=== PATIENT | male | born 1985 | race Caucasian/White ===

== ENCOUNTER 2023-06-30 09:30 | Outpatient (OUT) | payer MEDICARE, SELFPAY ==
[2023-06-30 10:27] LABS: Basophils Percent Auto 0.5 % (0.2-2.0); Eosinophils Absolute Auto 0.1 10^3/uL (0.0-0.7); Eosinophils Percent Auto 2.4 % (0.9-7.0); Hematocrit 46.1 % (42.0-54.0); Hemoglobin 15.3 g/dL (14.0-18.0); Immature Granulocytes Abs Auto 0.01 10^3/uL (0.00-0.03); Immature Granulocytes Pct Auto 0.2 % (0.0-0.5); Lymphocytes Absolute Auto 1.3 10^3/uL (1.2-3.8); Lymphocytes Percent Auto 31.2 % (20.5-60.0); Mean Corpuscular HGB Conc 33.2 g/dL (29.9-35.2); Mean Corpuscular Hemoglobin 29.5 pg (25.9-34.0); Mean Platelet Volume 11.4 fL (9.5-13.5); Monocytes Absolute Auto 0.3 10^3/uL (0.3-0.8); Monocytes Percent Auto 6.7 % (1.7-12.0); Neutrophils Absolute Auto 2.5 10^3/uL (1.4-6.5); Platelet Count 150 10^3/uL (150-450); Red Blood Count 5.18 10^6/uL (4.70-6.10); Red Cell Distribution Width 13.4 % (11.0-15.0); White Blood Count 4.2 10^3/uL (4.0-11.0)
[2023-06-30 11:54] LABS: Estimated Average Glucose 97 mg/dL
[2023-06-30 13:56] LABS: Alanine Aminotransferase 19 U/L (16-63); Albumin Globulin Ratio 1.2; Albumin Level 4.3 g/dL (3.4-5.0); Alkaline Phosphatase 69 U/L (46-116); Aspartate Amino Transferase 14 U/L (15-37); BUN Creatinine Ratio 20.3; Bilirubin Total 0.9 mg/dL (0.2-1.0); Calcium 9.6 mg/dL (8.5-10.1); Carbon Dioxide 28.2 mmol/L (21.0-32.0); Chloride 102 mmol/L (98-107); Chol HDL Ratio 3.1; Cholesterol 140 mg/dL (<=200); Estimated GFR (African America >60 (>=60); Estimated GFR (Non-African Ame >60 (>=60); Globulin 3.5 g/dL; Glucose 86 mg/dL (74-106); HDL Cholesterol 45 mg/dL (40-60); Potassium 4.2 mmol/L (3.5-5.1); Sodium 142 mmol/L (136-145); Total Protein 7.8 g/dL (6.4-8.2); Triglycerides 65 mg/dL (<=150); Uric Acid 3.9 mg/dL (3.5-7.2)
== END 2023-06-30 09:31 | disposition home or self-care (01) ==
PROVIDERS: PCP Family Medicine; Visit Provider Family Medicine
DX: G80.3 Athetoid cerebral palsy (principal); G80.9 Cerebral palsy, unspecified; E78.5 Hyperlipidemia, unspecified; R73.09 Other abnormal glucose
CPT/HCPCS: 36415; 80053; 80061; 83036; 84550; 85025

== ENCOUNTER 2024-03-01 08:25 | Outpatient (OUT) | payer MEDICARE, SELFPAY ==
--- NOTE | 2024-03-01 08:28 | XR_ITS ---
The [address] [address] Patient Name: DEVORAH MARCIAL MRN: [id number] date: 1985 Sex: M Assigned Patient Location: RAD Current Patient Location: [facility] Accession/Order Number: [id number] Exam Date: 03/01/2024 08:38 Report Date: 03/01/2024 09:05 At the request of: STACY WARNER Procedure: XR DEXA axial skeleton EXAMINATION: XR DEXA axial skeleton, 03/01/2024 8:38 AM EDT HISTORY: Age Related Osteoporosis M81.0 COMPARISON: None. TECHNIQUE: Dual-energy X-ray absorptiometry (DEXA) bone density study performed for the axial skeleton. HISTORY: Age Related Osteoporosis M81.0 FINDINGS: Bone mineral density left femoral trochanter measures 0.469 g/sq cm. T score -3.3. WHO classification: Osteoporosis Bone mineral density right femoral trochanter measuring 0.467 g/sq cm. T score -3.3. WHO classification: Osteoporosis XR/XR DEXA axial skeleton IMPRESSION: Osteoporosis. High fracture risk Electronically authenticated by: ALEKSANDER REID Date: 03/01/2024 09:05
== END 2024-03-01 08:26 | disposition home or self-care (01) ==
LOC: RAD 08:25
PROVIDERS: PCP Family Medicine; Visit Provider Family Medicine
DX: M81.0 Age-related osteoporosis without current pathological fracture (principal); G80.3 Athetoid cerebral palsy
CPT/HCPCS: 36415; 77080; 82306

== ENCOUNTER 2024-08-03 09:44 | Outpatient (OUT) | payer MEDICARE, SELFPAY ==
--- OUTSIDE RECORDS SUMMARY | 2024-08-03 09:59 | XMS_ITS | CCD ---
Author Organization [facility] CliniSytn Care Team Providers Care Crisis Intervention Specialist Name Role Phone Stacy Max~[phone] UNKNOWN Unavailable Unavailable Stacy Max~[phone] UNKNOWN Unavailable Unavailable Stacy Max~[phone] UNKNOWN Unavailable Unavailable Stacy Max Primary Care Provider UnavailNiki Santiago Attending Provider Unavailab Stacy Watts MD Primary Care Provider Niki Valera MD Unavailable Niki Valera MD Unavailable [phone] Gee Acuna MD Unavailable MD Stacy Max Primary Care Provider MD Stacy Max Attending Provider Stacy Max Attending Unavailable Stacy Max Primary Care Unavailable Stacy Max Admitting Unavailable Stacy Max MD Primary Care Provider [phone] Niki Valera MD Unavailable Niki Valera MD Unavailable Gee Acuna MD Unavailable Stacy Max MD. Primary Care Provider [phone] Niki Valera MD Unavailable [phone] Niki Valera MD Unavailable [phone] Gee Acuna MD Unavailable DR STACY NELSON Attending Unavailable TIMMY ., DR KUMAR Admitting Unavailable TIMMY ., DR KUMAR Primary Care Unavailable ITMMY Romero, DR KUMAR Attending Unavailable HOY ., DR KUMAR Admitting Unavailable HOY ., DR KUMAR Primary Care Unavailable HOY ., DR KUMAR Consulting Unavailable HOY ., DR KUMAR Attending Unavailable HOY ., DR KUMAR Admitting Unavailable HOY ., DR KUMAR Primary Care Unavailable HOY ., DR KUMAR Consulting Unavailable HOY ., DR KUMAR Admitting Unavailable HOY ., DR KUMAR Primary Care Unavailable HOY ., DR KUMAR Attending Unavailable STACY MAX Primary Care Unavailable PROVIDER, UNKNOWN Admitting Unavailable GEE ACUNA Attending Unavailable INDIA NAVARRO Attending Unavailable Unavailable Unavailable Unavailable Medications Current Medications Medication Drug Class(es) Dates Sig (Normalized) Sig (Original) baclofen 10 mg oral tablet (13 sources) gamma-Aminobutyri c Acid-ergic Agonist Start: 02-22-2023 End: 02-16-2024 take 1.5 tablets by mouth three times daily baclofen (LIORESAL) 10 MG tablet Indications: CP (cerebral palsy), dyskinetic (HCC) Take 1.5 Tablets by mouth 3 times daily. 135 Tablet 11 02/16/2024 Active Start: 02-25-2022 take 1.5 tablets by mouth three times daily baclofen (LIORESAL) 10 MG tablet Indications: CP (cerebral palsy), dyskinetic (HCC) Take 1.5 Tablets by mouth 3 times daily. 135 Tablet 11 02/25/2022 Active Start: 02-02-2022 End: 02-25-2022 take 1 tablet by mouth three times daily as needed baclofen (LIORESAL) 20 MG tablet Take 1 Tablet by mouth 3 times daily as needed. For worsening spasticity/stiffness 90 Tablet 11 02/02/2022 02/25/2022 Discontinued (Changing therapy) Start: 02-04-2021 End: 02-02-2022 take 1.5 tablets by mouth three times daily baclofen (LIORESAL) 10 MG tablet Indications: CP (cerebral palsy), dyskinetic (HCC) TAKE 1.5 TABLETS BY MOUTH 3 TIMES DAILY. 135 Tablet 11 02/04/2021 02/02/2022 Discontinued Start: 09-20-2019 take 30 mg by mouth three times daily Baclofen Active 30 MG Oral Three times daily September 20, 2019 10:54am Start: 06-08-2017 End: 09-20-2019 take 20 mg by mouth every eight hours Baclofen Discontinued 20 MG PO Q8H June 08, 2017 12:00am September 20, 2019 11:53am ferrous sulfate 134 mg oral tablet (2 sources) Start: 09-20-2019 take 27 mg by mouth once daily Ferrous Sulfate Active 27 MG Oral Daily September 20, 2019 10:55am Multivitamin (Multiple Vitamins) Tablet (1 source) Start: 09-20-2019 take 1 tablet by mouth once daily Multivitamin (Multiple Vitamins) Tablet Active 1 TAB PO Daily September 20, 2019 1:00am Multivitamin preparation (1 source) Start: 09-20-2019 take 1 tablet by mouth once daily Multivitamin Active 1 TAB Oral Daily September 20, 2019 10:55am Problems Active Problems Problem Classification Problem Date Documented Date Episodic/Chronic Administrative/social admission (2 sources) Reduced mobility; Translations: [Other abnormalities of gait and mobility] 07-27-2017 Episodic Chronic ulcer of skin (5 sources) Pressure ulcer stage 3; Translations: [Pressure ulcer] 07-27-2017 Chronic Developmental disorders (8 sources) Developmental coordination disorder; Translations: [Specific developmental disorder of motor function] Onset: 07-16-2006 07-16-2006 Chronic Disorders of lipid metabolism (1 source) Hyperlipidemia, unspecified; Translations: [HYPERLIPIDEMIA UNSPECIFIED] Onset: 03-25-2022 Chronic Other acquired deformities (8 sources) Scoliosis deformity of spine; Translations: [Other forms of scoliosis, site unspecified] Onset: 05-13-2004 05-13-2004 Chronic Other hereditary and degenerative nervous system conditions (4 sources) Dyskinetic cerebral palsy; 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 Other hereditary and degenerative nervous system conditions (8 sources) Hereditary spastic paraplegia; 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] 05-13-2004 Chronic Other nutritional; endocrine; and metabolic disorders (2 sources) Decreased body mass index; Translations: [Body mass index (BMI) 19.9 or less, adult] Episodic Paralysis (16 sources) Cerebral palsy; Translations: [Cerebral palsy, unspecified] Onset: 03-23-2022 11-20-2021 Chronic Past or Other Problems Problem Classification Problem Date Documented Da te Episodic/Chronic Appendicitis and other appendiceal conditions (8 sources) Perforation of cecum; Translations: [Acute appendicitis with perforation and localized peritonitis, without abscess] Onset: 01-14-2016 01-14-2016 Episodic Diabetes mellitus without complication (1 source) Other abnormal glucose; Translations: [OTHER ABNORMAL GLUCOSE] Onset: 03-25-2022 Episodic Fluid and electrolyte disorders (4 sources) Hyperkalemia; Translations: [HYPERKALEMIA] Onset: 03-26-2022 Episodic Other connective tissue disease (8 sources) Muscle atrophy; Translations: [Muscle wasting and atrophy, not elsewhere classified, unspecified site] Onset: 07-16-2006 07-16-2006 Episodic Other nervous system disorders (8 sources) Incoordination; Translations: [Unspecified lack of coordination] Onset: 07-16-2006 07-16-2006 Episodic Rehabilitation care; fitting of prostheses; and adjustment of devices (16 sources) Patient encounter status; Translations: [Encounter for occupational therapy] Onset: 07-13-2006 07-13-2006 Episodic Septicemia (except in labor) (8 sources) Septic shock; Translations: [Sepsis, unspecified organism] Onset: 01-14-2016 Resolved: 06-26-2020 06-26-2020 Episodic Results Test Name Value Interpretation Reference Range Facility Progress Noteson 02-23-2024 Fire Prevention Specialist Authentication Interface Message Text Dear Dr.Dr. 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 Any further increase of baclofen is causing decreased level of alertness and social interaction . We will keep baclofen unchanged to Baclofen to be given daily as instructed .while on baclofen monitor for any excessive daytime drowsiness Baclofen overdose i presents as ;ethargy , shallow breatahing leading to breathing arrest and . do not discontinue abruptly it may lead to life threatening withdrawal syndrome consisting of itching , irritability, palpitations, sweating, fever, high blood pressure rigidity with difficulty breathing . please make sure you have baclofen always available by using my chart asking for refill and /or calling our office I suggested to the parents to read about deep brain stimulation in the management of movement disorders in Cerebral palsy . Both Devorah and his parents verbalized understandingand appreciation of care RTC in 12 months or earlier if interested in transitioning to our adult neurologis with expertise in moevments disorder. HPI /Interval history Per Devorah and his mom and dad , Devorah has been doing well, his spasticity is tolrated on the current daily dose of baclofen 10 mg/tablet : 15 mg by mouth 3 times daily. 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 Hsleeps well, both parents denied any discomfort or difficulty sleeping . The baclofen is not causing any excessive daytime tiredness and /or drowsiness . He has no issues with his wheelchair SOCIAL hx Reviewed in EPIC and updated, Allergies: has No Known Allergies. ROS: As per HPI , All systems were reviewed and were negative unless noted : Constitutional: negative for malaise, fatigue or fevers Eyes: KNOWN WITH ESSENTIAL ANISOCORIA ENT: negative for altered hearing, ear ache, epistaxis, sore throat or oral lesions Respiratory: negative for tachypnea, wheezing, stridor, or chronic cough Cardiac: negative for SOB, syncope, palpitations, or chest pain GI: negative for vomiting, diarrhea, constipation (stools daily since switching diet to fructose free), abdominal pain : negative for dysuria, gross hematuria, urinary frequency, urgency, edema. Skin: negative for rash, pruritis, cellulitis Musculoskeletal: negative for bone pain, joint swelling, muscle cramps Psychological: negative for depression, abnormalities in affect or attention Hematologic/lymphatic : negative for bruising, bleeding, pallor or lymphadenopathy Allergic/Immunologic: see allergy history in EMR; negative history for recurrent or unusual infections Neurologic:: essential anisochoria left pupil 1mm larger than right side , The remainder of the pertinent review of systems is negative. . PHYSICAL EXAMINATION: BP 91/64 Pulse 94 Temp 98.8 ???F (37.1 ???C) (Temporal) Resp 18 Wt 78 lb (35.4 kg) Comment: home weight BMI 15.23 kg/m??? 78 lb (35.4 kg) slender, General appearnace : in no distress , happy, social smiling, animated facial expression congruent with the topic of conversation Dystonic downward movement of Devorah's jaew with excitement which worsens his drooling, well aware , attentive to his surrounding, reacts to my conversation with him and his parents , Normocephalic Clear oropharyngeal airways Good Lungs good air entry , CV: regular rhythm , Abdomen: Non-tender, no palpable masses, Neurological evaluation CN: Visual field not restricted . EOM: full. VA grossly normal. Essential anisocoria 1 mm larger pupil on the left side Symmetric face and facial sensation. Hearing: grossly normal , Midline tongue . Bilateral symmetric elevation of the soft palate Sensory to light touch and cold intact in the upper and lower extremities Motor : Sitting in his wheelchair , Weak purposful movements of the hands due to dystonic posture of the upper extremities in shoulder external rotation, elbow posturing in semi flexion wrist extension Hips and knees tonic flexion . The tone to passive range of motion of the upper and lower extremities is on the dg scale 3-4 due to agonist antagonist significant increase in upper extremities shoulders external rotators , elbows flexors and extensors Wrist extensors , DTR: 2 + throughout . Cerebellar: no tremors or dysmetria of the upper extremities with pusposful movements GAIT NA LAB RESULTS and EPIC notes were reviewed : MANUELA Education on 10/14/2023 Component Date Value Ref Range Status MANUELA EDU 10/14/2023 ADVANCE DIRECTIVES Final MANUELA URL 10/14/2023 [email or web address] Final MANUELA ACC 10/14/2023 [id number] Final MANUELA ISSUE DATE 10/14/2023 Oct 14, 2023 Final MANUELA EXPIRATION DATE 10/14 (more content not included)... Normal [facility] Telephone Encounteron 2023 Fire Prevention Specialist Authentication Interface Message Text 03/08/24 Called patient again in hopes of scheduling apt with Dr. oHlder unable to reach again lv again for a return call to schedule the apt. 02/18/24 Called patient in hopes of scheduling apt with Dr. Holder, unable to reach [facility] for a return call to schedule the apt. Normal [facility] Patient Instructionson 02-15 Fire Prevention Specialist Authentication Interface Message Text Please make an appointment with Dr. Suarez from physical medicine and rehabilitation Continue baclofen 15 mg 3 times daily Baclofen to be given daily as instructed .while on baclofen monitor for any excessive daytime drowsiness Baclofen overdose i presents as ;ethargy , shallow breatahing leading to breathing arrest and . DO NOT DISCONTINUE ABRUPTLY IT MAY LEAD TO LIFE THREATENING WITHDRAWAL SYNDROME consisting of itching , irritability, palpitations, sweating, fever, high blood pressure rigidity with difficulty breathing . PLEASE MAKE SURE YOU HAVE BACLOFEN ALWAYS AVAILABLE BY USING MY CHART ASKING FOR REFILL AND /OR CALLING OUR OFFICE If you have any question or concern please call our office :After hours call [phone] then enter [phone] and ask to talk to the child neurologist retail loss prevention investigator . Gee Acuna MD. Head, Division Child Neurology [address] [place] [address] [address] Normal [facility] Progress Noteson 02-16-2024 Fire Prevention Specialist Authentication Interface Message Text Identification was verified by patient verbalizing his name and date of . Normal [facility] PROF CHEM 8 (BAS METB)on Anion gap [Moles/Vol] 13.4 mmol/L Normal [facility] Comment on above: Performed By: #### B MP #### [facility] [address] [place] [address] Dr. Jayesh Sesay Calcium [Mass/Vol] 9.7 mg/dL Normal 8.5-10.1 [facility] Comment on above: Performed By: #### B MP #### [facility] [address] [place] [address] Dr. Jayesh Sesay Chloride [Moles/Vol] 104 mmol/L Normal 98-107 [facility] Comment on above: Performed By: #### B MP #### [facility] [address] [place] [address] [address] Jayesh Sesay CO2 [Moles/Vol] 28.6 mmol/L Normal 21.0-32.0 [facility] Comment on above: Performed By: #### B MP #### [facility] [address] [place] [address] Dr. Jayesh Sesay Creatinine [Mass/Vol] 0.73 mg/dL Normal 0.70-1.30 [facility] Comment on above: Performed By: #### B MP #### [facility] [address] [place] [address] Dr. Jayesh Sesay EGFR-AF ZAMBIAN >60 Normal >=60 [facility] Comment on above: Performed By: #### B MP #### [facility] [address] [place] [address] [address] Jayesh eSsay EGFR-NON AF ZAMBIAN >60 Normal >=60 [facility] Comment on above: Performed By: #### B MP #### [facility] [address] [place] [address] [address] Jayesh Sesay Glucose [Mass/Vol] 90 mg/dL Normal 74-106 [facility] Comment on above: Performed By: #### B MP #### [facility] [address] [place] [address] [address] Jayesh Sesay Potassium [Moles/Vol] 5.0 mmol/L Normal 3.5-5.1 [facility] Comment on above: Performed By: #### B MP #### [facility] [address] [place] [address] Dr. Jayesh Sesay Sodium [Moles/Vol] 141 mmol/L Normal 136-145 [facility] Comment on above: Performed By: #### B MP #### [facility] [address] [place] [address] [address] Jayesh Sesay Urea nitrogen [Mass/Vol] 18.0 mg/dL Normal 7.0-18.0 [facility] Comment on above: Performed By: #### B MP #### [facility] [address] [place] [address] [address] Jayesh Sesay Urea nitrogen/Creatinine [Mass ratio] 24.7 mg/mg Normal [facility] Comment on above: Performed By: #### B MP #### [facility] [address] [place] [address] [address] Jayesh Sesay INSULINon 03-24-2022 Insulin 4.6 uIU/mL Normal 2.6-24.9 [facility] Comment on above: Performed By: #### I NSULIN #### [facility] [address] [place] [address] [address] Jayesh Sesay CBC AUTO DIFFon 03-23-2022 BASO # 0.0 103/ul Normal 0.0-0.1 [facility] Comment on above: Performed By: #### C BC #### [facility] [address] [place] [address] Dr. Jayesh Sesay Basophils/100 WBC (Bld) 0.5 % Normal 0.2-2.0 [facility] Comment on above: Performed By: #### C BC #### [facility] [address] [place] [address] Dr. Jayesh Sesay EO # 0.2 103/ul Normal 0.0-0.7 [facility] Comment on above: Performed By: #### C BC #### [facility] [address] [place] [address] Dr. Jayesh Sesay Eosinophils/100 WBC (Bld) 3.1 % Normal 0.9-7.0 [facility] Comment on above: Performed By: #### C BC #### [facility] [address] [place] [address] Dr. Jayesh Sesay Erythrocyte distribution width (RBC) [Ratio] 13.2 % Normal 11.0-15.0 [facility] Comment on above: Performed By: #### C BC #### [facility] [address] [place] [address] Dr. Jayesh Sesay Hematocrit (Bld) [Volume fraction] 49.6 % Normal 42.0-54.0 [facility] Comment on above: Performed By: #### C BC #### [facility] [address] [place] [address] Dr. Jayesh Sesay Hemoglobin (Bld) [Mass/Vol] 15.7 g/dL Normal 14.0-18.0 [facility] Comment on above: Performed By: #### C BC #### [facility] [address] [place] [address] Dr. Jayesh Sesay IG # 0.01 10e3/ul Normal 0.00-0.03 [facility] Comment on above: Performed By: #### C BC #### [facility] [address] [place] [address] Dr. Jayesh Sesay IG % 0.2 % Normal 0.0-0.5 [facility] Comment on above: Performed By: #### C BC #### [facility] [address] [place] [address] Dr. Jayesh Sesay LYMPH # 1.7 103/ul Normal 1.2-3.8 [facility] Comment on above: Performed By: #### C BC #### [facility] [address] [place] [address] Dr. Jayesh Sesay Lymphocytes/100 WBC (Bld) 27.6 % Normal 20.5-60.0 [facility] Comment on above: Performed By: #### C BC #### [facility] [address] [place] [address] Dr. Jayesh Sesay MANUAL DIFF REQ NO Normal [facility] Comment on above: Performed By: #### C BC #### [facility] [address] [place] [address] Dr. Jayesh Sesay MCH (RBC) [Entitic mass] 28.5 pg Normal 25.9-34.0 [facility] Comment on above: Performed By: #### C BC #### [facility] [address] [place] [address] Dr. Jayesh Sesay MCHC (RBC) [Mass/Vol] 31.7 g/dL Normal 29.9-35.2 [facility] Comment on above: Performed By: #### C BC #### [facility] [address] [place] [address] Dr. Jayesh Sesay MCV (RBC) [Entitic vol] 90.2 fL Normal 80.0-94.0 [facility] Comment on above: Performed By: #### C BC #### [facility] [address] [place] [address] Dr. Jayesh Sesay MONO # 0.4 103/ul Normal 0.3-0.8 [facility] Comment on above: Performed By: #### C BC #### [facility] [address] [place] [address] Dr. Jayesh Sesay Monocytes/100 WBC (Bld) 6.8 % Normal 1.7-12.0 [facility] Comment on above: Performed By: #### C BC #### [facility] [address] [place] [address] Dr. Jayesh Sesay NEUT # 3.8 103/ul Normal 1.4-6.5 [facility] Comment on above: Performed By: #### C BC #### [facility] [address] [place] [address] Dr. Jayesh Sesay Neutrophils/100 WBC (Bld) 61.8 % Normal 43.0-75.0 [facility] Comment on above: Performed By: #### C BC #### [facility] [address] [place] [address] Dr. Jayesh Sesay Platelet mean volume (Bld) [Entitic vol] 10.9 fL Normal 9.5-13.5 [facility] Comment on above: Performed By: #### C BC #### [facility] [address] [place] [address] Dr. Jayesh Sesay PLT 160 103/ul Normal 150-450 [facility] Comment on above: Performed By: #### C BC #### [facility] [address] [place] [address] Dr. Jayesh Sesay RBC 5.50 106/ul Normal 4.70-6.10 [facility] Comment on above: Performed By: #### C BC #### [facility] [address] [place] [address] Dr. Jayesh Sesay WBC 6.2 103/ul Normal 4.0-11.0 [facility] Comment on above: Performed By: #### C BC #### [facility] [address] [place] [address] Dr. Jayesh Sesay FREE THYROXINE INDEX T7on FTI 4.13 Normal 1.30-4.50 [facility] Comment on above: Performed By: #### L IPID, CMP, TSH, T7 #### [facility] [address] [place] [address] Dr. Jayesh Sesay T3U 35.0 % Normal 33.0-40.0 [facility] Comment on above: Performed By: #### L IPID, CMP, TSH, T7 #### [facility] [address] [place] [address] [address] Jayesh Sesay T4 [Mass/Vol] 11.80 ug/dL Normal 4.50-12.10 [facility] Comment on above: Performed By: #### L IPID, CMP, TSH, T7 #### [facility] [address] [place] [address] [address] Jayesh Sesay GLYCOHEMOGLOBIN A1Con 2021 ADA RECOMMENDATION SEE BELOW Normal [facility] Comment on above: Result Comment: ADA RECOMMENDED LIMIT 4.0 - 6.0 ADA THERAPEUTIC TARGET < 7.0 ACTION SUGGESTED > 7.0 Performed By: #### A 1C #### [facility] [address] [place] [address] Dr. Jayesh Sesay Glucose [Mass/Vol] 100 mg/dL Normal [facility] Comment on above: Performed By: #### A 1C #### [facility] [address] [place] [address] Dr. Jayesh Sesay HbA1c (Bld) [Mass fraction] 5.1 % Normal 4.5-6.2 [facility] Comment on above: Performed By: #### A 1C #### [facility] [address] [place] [address] Dr. Jayesh Sesay LIPID PROFILEon 03-23-2022 CHOL-HDL RATIO NORM SEE BELOW Normal [facility] Comment on above: Result Comment: 3.3 - 4.4 LOW RISK 4.4 - 7.1 AVERAGE RISK 7.1 - 11.0 MODERATE RISK >11.0 HIGH RISK Performed By: #### L IPID, CMP, TSH, T7 #### [facility] [address] [place] [address] [address] Jayesh Sesay Cholesterol [Mass/Vol] 153 mg/dL Normal <=200 [facility] Comment on above: Performed By: #### L IPID, CMP, TSH, T7 #### [facility] [address] [place] [address] Dr. Jayesh Sesay Cholesterol in HDL [Mass/Vol] 49 mg/dL Normal 40-60 [facility] Comment on above: Performed By: #### L IPID, CMP, TSH, T7 #### [facility] [address] [place] [address] [address] Jayesh Sesay Cholesterol in LDL [Mass/Vol] 90.6 mg/dL Normal [facility] Comment on above: Performed By: #### L IPID, CMP, TSH, T7 #### [facility] [address] [place] [address] [address] Jayesh Sesay Cholesterol.total/Ch olesterol in HDL [Mass ratio] 3.1 {ratio} Normal [facility] Comment on above: Performed By: #### L IPID, CMP, TSH, T7 #### [facility] [address] [place] [address] [address] Jayesh Sesay HDL NORMAL > or = 60 mg/dl - LO W CARDIOVASCULAR RISK <40 mg/dl - HIGH CARDIOVASCULAR RISK Normal [facility] Comment on above: Performed By: #### L IPID, CMP, TSH, T7 #### [facility] [address] [place] [address] [address] Jayesh Sesay LDL CALC NORMAL SEE BELOW Normal [facility] Comment on above: Result Comment: <100 mg/dl OPTIMAL 100 - 129 mg/dl NEAR OR ABOVE OPTIMAL 130 - 159 mg/dl BORDERLINE HIGH 160 - 189 mg/dl HIGH >190 mg/dl VERY HIGH Performed By: #### L IPID, CMP, TSH, T7 #### [facility] [address] [place] [address] [address] Jayesh Sesay Triglyceride [Mass/Vol] 67 mg/dL Normal <=150 [facility] Comment on above: Performed By: #### L IPID, CMP, TSH, T7 #### [facility] [address] [place] [address] [address] Jayesh Sesay VLDL CALC 13.4 mg/dL Normal [facility] Comment on above: Performed By: #### L IPID, CMP, TSH, T7 #### [facility] [address] [address] [address] Jayesh Sesay PROF 14(COMP METB)on 022 Albumin [Mass/Vol] 5.0 g/dL Normal 3.4-5.0 [facility] Comment on above: Performed By: #### L IPID, CMP, TSH, T7 #### [facility] [address] [place] [address] Dr. Jayesh Sesay Albumin/Globulin [Mass ratio] 1.4 {ratio} Normal [facility] Comment on above: Performed By: #### L IPID, CMP, TSH, T7 #### [facility] [address] [place] [address] Dr. Jayesh Sesay ALP [Catalytic activity/Vol] 70 U/L Normal 46-116 [facility] Comment on above: Performed By: #### L IPID, CMP, TSH, T7 #### [facility] [address] [place] [address] Dr. Jayesh Sesay ALT [Catalytic activity/Vol] 24 U/L Normal 16-63 [facility] Comment on above: Performed By: #### L IPID, CMP, TSH, T7 #### [facility] [address] [place] [address] Dr. Jayesh Sesay Anion gap [Moles/Vol] 22.7 mmol/L Normal [facility] Comment on above: Performed By: #### L IPID, CMP, TSH, T7 #### [facility] [address] [place] [address] Dr. Jayesh Sesay AST [Catalytic activity/Vol] 18 U/L Normal 15-37 [facility] Comment on above: Performed By: #### L IPID, CMP, TSH, T7 #### [facility] [address] [place] [address] Dr. Jayesh Sesay Bilirubin [Mass/Vol] 0.9 mg/dL Normal 0.2-1.0 [facility] Comment on above: Performed By: #### L IPID, CMP, TSH, T7 #### [facility] [address] [place] [address] Dr. Jayesh Sesay Calcium [Mass/Vol] 10.7 mg/dL Critically high 8.5-10.1 [facility] Comment on above: Performed By: #### L IPID, CMP, TSH, T7 #### [facility] [address] [address] [address] Jayesh Sesay Chloride [Moles/Vol] 108 mmol/L Critically high 98-107 [facility] Comment on above: Performed By: #### L IPID, CMP, TSH, T7 #### [facility] [address] [address] [address] Jayesh Sesay CO2 [Moles/Vol] 23.8 mmol/L Normal 21.0-32.0 [facility] Comment on above: Performed By: #### L IPID, CMP, TSH, T7 #### [facility] [address] [address] [address] Jayesh Sesay Creatinine [Mass/Vol] 0.81 mg/dL Normal 0.70-1.30 [facility] Comment on above: Performed By: #### L IPID, CMP, TSH, T7 #### [facility] [address] [address] [address] Jayesh Sesay EGFR-AF ZAMBIAN >60 Normal >=60 [facility] Comment on above: Performed By: #### L IPID, CMP, TSH, T7 #### [facility] [address] [address] [address] Jayesh Sesay EGFR-NON AF ZAMBIAN >60 Normal >=60 [facility] Comment on above: Performed By: #### L IPID, CMP, TSH, T7 #### [facility] [address] [address] [address] Jayesh Sesay Globulin (S) [Mass/Vol] 3.7 g/dL Normal [facility] Comment on above: Performed By: #### L IPID, CMP, TSH, T7 #### [facility] [address] [address] [address] Jayesh Sesay Glucose [Mass/Vol] 105 mg/dL Normal 74-106 [facility] Comment on above: Performed By: #### L IPID, CMP, TSH, T7 #### [facility] [address] [address] [address] Jayesh Sesay Potassium [Moles/Vol] 5.5 mmol/L Critically high 3.5-5.1 [facility] Comment on above: Performed By: #### L IPID, CMP, TSH, T7 #### [facility] [address] [place] [address] Dr. Jayesh Sesay Protein [Mass/Vol] 8.7 g/dL Critically high 6.4-8.2 [facility] Comment on above: Performed By: #### L IPID, CMP, TSH, T7 #### [facility] [address] [place] [address] Dr. Jayesh Sesay Sodium [Moles/Vol] 149 mmol/L Critically high 136-145 [facility] Comment on above: Performed By: #### L IPID, CMP, TSH, T7 #### [facility] [address] [place] [address] Dr. Jayesh Sesay Urea nitrogen [Mass/Vol] 16.0 mg/dL Normal 7.0-18.0 [facility] Comment on above: Performed By: #### L IPID, CMP, TSH, T7 #### [facility] [address] [place] [address] Dr. Jayesh Sesay Urea nitrogen/Creatinine [Mass ratio] 19.8 mg/mg Normal [facility] Comment on above: Performed By: #### L IPID, CMP, TSH, T7 #### [facility] [address] [place] [address] Dr. Jayesh Sesay TSHon 03-23-2022 TSH 1.464 uIU/mL Normal 0.358-3.740 [facility] Comment on above: Performed By: #### L IPID, CMP, TSH, T7 #### [facility] [address] [place] [address] Dr. Jayesh Sesay Coding Summary.on 08-06-2017 Coding Summary. CODING DATE: 08/06/2017 FINAL [facility] STATUS: PAYOR: Medicare ADMIT DX: REASON FOR VISIT DX: F80.1 Expressive language disorder FINAL DX: PRINCIPAL: F80.1 Expressive language disorder SECONDARY: PROCEDURES DOCTOR NAME DATE NOTE: The code number assigned matches the documented diagnosis and / or procedure in the patient's chart. However, the narrative phrase printed from the coding software may appear abbreviated, or result in slightly different terminology. Coded By: Juany Hicks Date Saved: 08/06/2017 04:29 pm [facility] Vital Signs Date Time Vital Sign Value Performing Clinician Facility 02-16-2024 12:59-0400 Body mass index (BMI) [Ratio] 15.23 kg/m2 Gee Acuna MD Work Phone: [facility] 02-16-2024 12:59-0400 Body temperature 98.8 [degF] Gee Acuna MD Work Phone: [facility] 02-16-2024 12:59-0400 Body weight 35.38 kg [facility] Comment on above: home weight 02-16-2024 12:59-0400 Diastolic blood pressure 64 mm[Hg] Gee Acuna MD Work Phone: [facility] 02-16-2024 12:59-0400 Heart rate 94 /min Gee Acuna MD Work Phone: [facility] 02-16-2024 12:59-0400 Respiratory rate 18 /min Gee Acuna MD Work Phone: [facility] 02-16-2024 12:59-0400 Systolic blood pressure 91 mm[Hg] Gee Acuna MD Work Phone: [facility] 02-02-2022 14:29-0400 Body mass index (BMI) [Ratio] 15.23 kg/m2 [facility] 02-02-2022 14:29-0400 Body temperature 97.9 [degF] [facility] 02-02-2022 14:29-0400 Body weight 35.38 kg Gee Acuna MD Work Phone: [facility] 02-02-2022 14:29-0400 Diastolic blood pressure 71 mm[Hg] Gee Acuna MD Work Phone: [facility] 02-02-2022 14:29-0400 Heart rate 106 /min Gee Acuna MD Work Phone: [facility] 02-02-2022 14:29-0400 Respiratory rate 16 /min Gee Acuna MD Work Phone: [facility] 02-02-2022 14:29-0400 Systolic blood pressure 110 mm[Hg] Gee Acuna MD Work Phone: [facility] 09-20-2019 11:18-0500 BMI (Body Mass Index) 14.7 kg/m2 [facility] 09-20-2019 11:18-0500 Body weight 35.38 kg [facility] 09-20-2019 11:18-0500 Height 154.94 cm [facility] 09-20-2019 10:56-0500 Body Temperature 97.4 [degF] [facility] 09-20-2019 10:56-0500 BP Diastolic 70 mm[Hg] [facility] 09-20-2019 10:56-0500 BP Systolic 112 mm[Hg] [facility] 09-20-2019 10:56-0500 Pulse (Heart Rate) 72 /min [facility] 09-20-2019 10:56-0500 Respiratory Rate 18 /min [facility] Encounters Encounter Date Encounter Type Care Provider Facility Start: 2024 End: 2024 ambulatory INDIA NAVARRO Not Available Start: 02-18-2024 End: 02-18-2024 Telephone encounter Michael Holder MD Work Phone: [facility] Start: 02-16-2024 End: 02-23-2024 Office outpatient visit 25 minutes Gee Acuna MD Work Phone: [facility] Comment on above: CP (cerebral palsy), dyskinetic (HCC) (Primary Dx); Body mass index (BMI) 19.9 or less, adult Start: 02-16-2024 End: 02-23-2024 ambulatory STACY MAX Facility:[facility] Start: 12-23-[address] STACY MAX . Facili ty:[facility] Start: 11-25-2022 Letter encounter Stacy Cruz Work Phone: [facility] Start: 11-03-2022 Refill Gee Cruz Work Phone: [facility] Comment on above: Refill; Prescription Clarification Start: 05-21-2022 End: 05-21-2022 ambulatory Stacy Max Facility:[facility] Start: 05-21-2022 End: 05-21-2022 Discharged Recurring MD Stacy Max Work Phone: [facility] [address] Start: 03-26-2022 End: 03-27-[address] STACY MAX . Facility: Start: 03-23-2022 End: 03-24-[address] STACY MAX . Facility: Start: 02-25-2022 ambulatory Gee Cruz Work Phone: [facility] Comment on above: Baclofen prescriptio n change Start: 02-25-2022 E-mail encounter fro m caregiver Gee Acuna MD Work Phone: [facility] Start: 02-25-2022 Telephone encounter Iris Arroyo [facility] Start: 02-02-2022 End: 02-03-2022 Office outpatient visit 25 minutes Gee Acuna MD Work Phone: [facility] Comment on above: CP (cerebral palsy), dyskinetic (HCC) (Primary Dx); Body mass index (BMI) 19.9 or less, adult Start: 01-01-[address] STACY MAX . Facili ty:[facility] Start: 09-20-2019 End: 11-06-2019 Discharged Recurring Stacy Max [facility] [place] Start: 08-04-2017 End: 02-10-2018 Ambulatory Stacy~[id number] MARISOL Max Facility:[facility] Start: 06-16-2017 End: 06-17-2017 Discharged Recurring Stacy Max [facility] [place] Procedures Date Procedure Procedure Detail Performing Clinician Start: 06-09-2016 H/O: ileostomy H/O ileostomy Gee kumar MD Work Phone: Plan of Treatment Date Care Activity Detail Author Start: 2037 Shingles (RZV) Vacci ne (1 of 2) Shingles (RZV) Vaccine (1 of 2) [facility] Start: 03-23-2027 Lipid panel [facility] Start: 01-20-2024 Lipid panel [facility] Start: 06-04-2023 COVID-19 Vaccine ( season) COVID-19 Vaccine ( season) [facility] Start: 07-04-2022 Influenza vaccination Influenza Vacc ine (#1) [facility] Start: 2022 Lipid panel Cholesterol [facility] Start: 10-06-2021 COVID-19 Vaccine (4 - Booster for Moderna series) COVID-19 Vaccine (4 - Booster for Moderna series) [facility] Start: 08-04-2017 Annual wellness visit [facility] ([id number]) [facility] Start: 2014 HPV Vaccine (optiona l start 27-45 years) HPV Vaccine (optional start 27-45 years) [facility] Start: 2006 Hepatitis A (HAV) Va ccine (optional start 19+ years) Hepatitis A (HAV) Vaccine (optional start 19+ years) [facility] Start: 2006 Hepatitis B vaccination Hepati tis B (HBV) Vaccine (1 of 3 - 19+ 3-dose series) [facility] Start: 2005 Hepatitis C screening Hepatitis C An tibody [facility] Start: 2005 Tetanus + diphtheria + acellular pertussis vaccine (product) Tdap Booster [facility] Start: 2002 [facility] Start: 1987 Hepatitis B vaccination Hepati tis B (HBV) Vaccine (1 of 3 - 3-dose series) [facility] Immunizations Immunization Date Immunization Notes Care Provider Thom conner 08-11-2021 Moderna Monovalent ( 12+ yrs) COVID-19 vaccine, mRNA, spike protein, LNP, PF, 100 mcg/0.5 mL (NSK=083) Michael Holder MD Work Phone: [facility] 07-10-2021 influenza, injectabl e, quadrivalent, contains preservative Gee Acuna MD Work Phone: [facility] 07-10-2021 influenza virus vacc ine, unspecified formulation Gee Acuna MD Work Phone: [facility] 11-28-2020 Moderna SARS-COV-2 (COVID-19) vaccine, mRNA, spike protein, LNP, preservative free, 100 mcg/0.5 mL (primary) or 50 mcg/0.25 mL (booster) (YPT=636) Gee Acuna MD Work Phone: [facility] 10-31-2020 Moderna SARS-COV-2 (COVID-19) vaccine, mRNA, spike protein, LNP, preservative free, 100 mcg/0.5 mL (primary) or 50 mcg/0.25 mL (booster) (MCC=283) Gee Acuna MD Work Phone: [facility] 07-09-2020 influenza virus vacc ine, unspecified formulation Gee Acuna MD Work Phone: [facility] 08-07-2019 influenza, injectabl e, quadrivalent, contains preservative Gee Acuna MD Work Phone: [facility] 08-19-2018 influenza, injectabl e, quadrivalent, contains preservative Gee Acuna MD Work Phone: [facility] 08-09-2017 influenza, injectabl e, quadrivalent, contains preservative Gee Acuna MD Work Phone: [facility] 07-17-2016 influenza, injectabl e, quadrivalent, preservative free Gee Acuna MD Work Phone: [facility] 01-27-2016 Miroslava Acuna MD Work Phone: [facility] 01-26-2016 Miroslava Acuna MD Work Phone: [facility] 01-25-2016 Albumin Gee Acuna MD Work Phone: [facility] 01-24-2016 Albumin Gee Acuna MD Work Phone: [facility] 01-14-2016 Miroslava Acuna MD Work Phone: [facility] 07-24-2015 influenza, injectabl e, quadrivalent, preservative free Gee Acuna MD Work Phone: [facility] 08-13-2014 influenza, injectabl e, quadrivalent, preservative free Gee Acuna MD Work Phone: [facility] 08-04-2013 influenza, seasonal, injectable Gee Acuna MD Work Phone: [facility] Payers Date Payer Category Payer Medicare ANTHEM - MEDICAR E ANTHEM MEDICARE [id number] 2018-Present [address] [place] [address] Medicare HMO [id number] 2017 Private Health Insurance [id number] 1987 Unknown [id number] 1987 Unknown [id number] 1987 Unknown [id number] 1987 Unknown [id number] 1987 Unknown [id number] 1987 Unknown [id number] 1959 Self-pay [id number] 1957 Unknown [id number] Private Health Insurance [id number] Unknown [id number] Unknown [id number] Social History Date Type Detail Facility Start: 09-20-2019 End: 02-22-2023 Tobacco smoking status NHIS Never smoked tobacco (finding) [facility] Start: 1985 Sex Assigned At Male [facility] Start: 01-02-2021 End: 02-22-2023 Alcohol intake Current non-drinker of alcohol (finding) [facility] Start: 01-02-2021 End: 02-22-2023 Alcohol intake [facility] Start: 1985 Sex Assigned At [facility] file [facility] Start: 02-09-2019 End: 02-22-2023 Tobacco use and exposure Smokeless tobacco non-user [facility] Start: 02-22-2023 Tobacco use panel [facility] Goals Date Patient Goal Desired Activity /State Clinical Notes 02-02-2022 to 02-23-2024 Gee Acuna MD - 02/23/2024 10:17 AM Reny Mills RN - 02/16/2024 12:58 PM EDTTelephone Te - Stefanie Gomez - 02/18/2024 3:38 PM EDTPatient InstructionsPatient Instructions Note Date & Type Note Facility 02-23-2024 History of Presen t illness Narrative Dear Dr.Dr. 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 Any further increase of baclofen is causing decreased level of alertness and social interaction . We will keep baclofen unchanged to Baclofen to be given daily as instructed .while on baclofen monitor for any excessive daytime drowsiness Baclofen overdose i presents as ;ethargy , shallow breatahing leading to breathing arrest and . do not discontinue abruptly it may lead to life threatening withdrawal syndrome consisting of itching , irritability, palpitations, sweating, fever, high blood pressure rigidity with difficulty breathing . please make sure you have baclofen always available by using my chart asking for refill and /or calling our office I suggested to the parents to read about deep brain stimulation in the management of movement disorders in Cerebral palsy . Both Devorah and his parents verbalized understandingand appreciation of care RTC in 12 months or earlier if interested in transitioning to our adult neurologis with expertise in moevments disorder. HPI /Interval history Per Devorah and his mom and dad , Devorah has been doing well, his spasticity is tolrated on the current daily dose of baclofen 10 mg/tablet : 15 mg by mouth 3 times daily. 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 Hsleeps well, both parents denied any discomfort or difficulty sleeping . The baclofen is not causing any excessive daytime tiredness and /or drowsiness . He has no issues with his wheelchair SOCIAL hx Reviewed in [facility] and updated, Allergies: has No Known Allergies. ROS: As per HPI , All systems were reviewed and were negative unless noted : Constitutional: negative for malaise, fatigue or fevers Eyes: KNOWN WITH ESSENTIAL ANISOCORIA ENT: negative for altered hearing, ear ache, epistaxis, sore throat or oral lesions Respiratory: negative for tachypnea, wheezing, stridor, or chronic cough Cardiac: negative for SOB, syncope, palpitations, or chest pain GI: negative for vomiting, diarrhea, constipation (stools daily since switching diet to fructose free), abdominal pain : negative for dysuria, gross hematuria, urinary frequency, urgency, edema. Skin: negative for rash, pruritis, cellulitis Musculoskeletal: negative for bone pain, joint swelling, muscle cramps Psychological: negative for depression, abnormalities in affect or attention Hematologic/lymphatic: negative for bruising, bleeding, pallor or lymphadenopathy Allergic/Immunologic: see allergy history in EMR; negative history for recurrent or unusual infections Neurologic:: essential anisochoria left pupil 1mm larger than right side , The remainder of the pertinent review of systems is negative. . PHYSICAL EXAMINATION: BP 91/64 Pulse 94 Temp 98.8 F (37.1 C) (Temporal) Resp 18 Wt 78 lb (35.4 kg) Comment: home weight BMI 15.23 kg/m 78 lb (35.4 kg) slender, General appearnace : in no distress , happy, social smiling, animated facial expression congruent with the topic of conversation Dystonic downward movement of Devorah's jaew with excitement which worsens his drooling, well aware , attentive to his surrounding, reacts to my conversation with him and his parents , Normocephalic Clear oropharyngeal airways Good Lungs good air entry , CV: regular rhythm , Abdomen: Non-tender, no palpable masses, Neurological evaluation CN: Visual field not restricted . EOM: full. VA grossly normal. Essential anisocoria 1 mm larger pupil on the left side Symmetric face and facial sensation. Hearing: grossly normal , Midline tongue . Bilateral symmetric elevation of the soft palate Sensory to light touch and cold intact in the upper and lower extremities Motor : Sitting in his wheelchair , Weak purposful movements of the hands due to dystonic posture of the upper extremities in shoulder external rotation, elbow posturing in semi flexion wrist extension Hips and knees tonic flexion . The tone to passive range of motion of the upper and lower extremities is on the dg scale 3-4 due to agonist antagonist significant increase in upper extremities shoulders external rotators , elbows flexors and extensors Wrist extensors , DTR: 2 + throughout . Cerebellar: no tremors or dysmetria of the upper extremities with pusposful movements GAIT NA LAB RESULTS and EPIC notes were reviewed : MANUELA Education on 10/14/2023 Component Date Value Ref Range Status [facility] 10/14/2023 ADVANCE DIRECTIVES Final MANUELA URL 10/14/2023 [email or web address] Final MANUELA ACC 10/14/2023 [id number] Final MANUELA ISSUE DATE 10/14/2023 Oct 14, 2023 Final MANUELA EXPIRATION DATE 10/14/2023 Nov 28, 2023 Final MANUELA MESSAGE EVENT 10/14/2023 Scheduled Final Impression plan and issues discussed face to face with health care coordinator After Reviewing chart,labs, and other clinical notes , 38 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 Devorah expressed satisfaction staying on the same daily dose of baclofen 15 mg po tid I discussed Devorah and his mom and dad transitioning to the adult physical medicine and rehab clinic . Message sent to Dr. Suaerz The parents are well aware about benefits and risk of baclofen Baclofen to be given daily as instructed .while on baclofen monitor for any excessive daytime drowsiness Baclofen overdose i presents as ;ethargy , shallow breatahing leading to breathing arrest and . do not discontinue abruptly it may lead to life threatening withdrawal syndrome consisting of itching , irritability, palpitations, sweating, fever, high blood pressure rigidity with difficulty breathing . please make sure you have baclofen always available by using my chart asking for refill and /or calling our office after hours call [phone] then enter 0 and ask to talk to the child neurologist retail loss prevention investigator . Devorah and his parents verbalized understanding and appreciation of care. Thank you for allowing us to share in Devorah Marcial's management. Sincerely, Gee Acuna MD. Head, Division Child Neurology [address] [place] [address] [address] Identification was verified by patient verbalizing his name and date of . documented in this encounter [facility] 02-18-2024 Telephone encounter Note Form atting of this note might be different from the original. 03/08/24 Called patient again in hopes of scheduling apt with Dr. Holder unable to reach again lvm again for a return call to schedule the apt. 02/18/24 Called patient in hopes of scheduling apt with Dr. Holder, unable to reach lvm for a return call to schedule the apt. [facility] 02-18-2024 Miscellaneous Notes Formattin g of this note might be different from the original. 02/18/24 Called patient in hopes of scheduling apt with Dr. Holder, unable to reach lvm for a return call to schedule the apt. documented in this encounter [facility] 02-18-2024 Miscellaneous Notes Formattin g of this note might be different from the original. 03/08/24 Called patient again in hopes of scheduling apt with Dr. Holder unable to reach again lvm again for a return call to schedule the apt. 02/18/24 Called patient in hopes of scheduling apt with Dr. Holder, unable to reach lvm for a return call to schedule the apt. documented in this encounter [facility] 02-16-2024 Instructions Gee Acuna MD - 02/16/2024 1:31 PM EDT Please make an appointment with Dr. Suarez from physical medicine and rehabilitation Continue baclofen 15 mg 3 times daily Baclofen to be given daily as instructed .while on baclofen monitor for any excessive daytime drowsiness Baclofen overdose i presents as ;ethargy , shallow breatahing leading to breathing arrest and . DO NOT DISCONTINUE ABRUPTLY IT MAY LEAD TO LIFE THREATENING WITHDRAWAL SYNDROME consisting of itching , irritability, palpitations, sweating, fever, high blood pressure rigidity with difficulty breathing . PLEASE MAKE SURE YOU HAVE BACLOFEN ALWAYS AVAILABLE BY USING MY CHART ASKING FOR REFILL AND /OR CALLING OUR OFFICE If you have any question or concern please call our office :After hours call [phone] then enter 0 and ask to talk to the child neurologist retail loss prevention investigator . Gee Acuna MD. Head, Division Child Neurology [address] [place] [address] #3 documented in this encounter [facility] 11-03-2022 Telephone encounter Note Form atting of this note might be different from the original. Reference number [id number]. Spoke with Meliton to have the baclofen 10 mg/tablet : one and half tablet by mouth approved 30 days spupplu ( 135 tablets ) . Per Giovanna the clinical team will provide final decision about authorization within 72 hours By calling, faxing and mailing their decision [facility] 11-03-2022 Miscellaneous Notes Formattin g of this note might be different from the original. Reference number [id number]. Spoke with Meliton to have the baclofen 10 mg/tablet : one and half tablet by mouth approved 30 days spupplu ( 135 tablets ) . Per Giovanna the clinical team will provide final decision about authorization within 72 hours By calling, faxing and mailing their decision documented in this encounter [facility] 02-25-2022 Telephone encounter Note Form atting of this note might be different from the original. Based on the parents feedback baclofen 20 mg 3 times daily has caused drowsiness management plan is to give Devorah baclofen 10mg/tablet : one and half tablet ( 15 mg ) 3 times daily with monitoring for excessive drowsiness, tiredness . [facility] 02-25-2022 Miscellaneous Notes Formattin g of this note might be different from the original. Based on the parents feedback baclofen 20 mg 3 times daily has caused drowsiness management plan is to give Devorah baclofen 10mg/tablet : one and half tablet ( 15 mg ) 3 times daily with monitoring for excessive drowsiness, tiredness . documented in this encounter [facility] 02-25-2022 Telephone encounter Note Form atting of this note might be different from the original. ----- Message from Amparo Vo RN sent at 02/25/2022 8:48 AM EDT ----- Regarding: FW: Baclofen prescription change ----- Message ----- From: Devorah Marcial Sent: 02/25/2022 7:10 AM EDT To: Sharla HiltonSenior Firmware Engineer Pool Subject: Baclofen prescription change On the February 02 visit, a prescription for an increased dosage of 20mg 3 times a day was issued, this was on a trial basis to see how the dosage went. Previous dosage was 1.5 tablets 3 times a day (10mg size). We introduced incremental increases week by week until full dosage of the 20mg script. This has caused too much drowsiness and low energy level for Devorah. We want to revert back to the 10mg script of 1.5 tablets 3 times a day (135 quantity). Can you please request this new script right away to [facility] (information on record). We will notify the pharmacy to expect it. Can you please confirm that you have received this message, and also when the new script has been requested. Please respond thru Dialect[employer] messaging, or home phone [phone] and speak to mom. Thank you [facility] 02-25-2022 Miscellaneous Notes Formattin g of this note might be different from the original. ----- Message from Amparo Vo RN sent at 02/25/2022 8:48 AM EDT ----- Regarding: FW: Baclofen prescription change ----- Message ----- From: Devorah Marcial Sent: 02/25/2022 7:10 AM EDT To: Sharla HiltonSenior Firmware Engineer Pool Subject: Baclofen prescription change On the February 02 visit, a prescription for an increased dosage of 20mg 3 times a day was issued, this was on a trial basis to see how the dosage went. Previous dosage was 1.5 tablets 3 times a day (10mg size). We introduced incremental increases week by week until full dosage of the 20mg script. This has caused too much drowsiness and low energy level for Devorah. We want to revert back to the 10mg script of 1.5 tablets 3 times a day (135 quantity). Can you please request this new script right away to [facility] (information on record). We will notify the pharmacy to expect it. Can you please confirm that you have received this message, and also when the new script has been requested. Please respond thru Dial[employer] messaging, or home phone [phone] and speak to mom. Thank you documented in this encounter [facility] 02-02-2022 History of Presen t illness Narrative Devorah is brought by his mom and dad for follow up dyskinetic dystonic quadriparetic static encephalopathy . Last telemdicine encounter was in 01/2021 Issues discussed : Devorah is a 33 year old Male with quadriparetic, dyskinetic cerebral palsy. Devorah is presnting a relatively well tolerated dyskinesia while taking oral baclofen . He and his parents are satisfied about the current management of his dyskinesia with baclofen . Baclofen renewal . I went over the importance of taking baclofen regularly to avoid life threatening baclofen withdrawal syndrome . I calleed Devorah and his mom Per mom he has been doing real well, no worsening spasticity , no adverse effects from baclofen , mom is the risk of toxicity From overdose leading to apnea and the risk of underdose if baclofen is abruptly stopped with risk of withdrawal, that can present as worsening stiffness, hypertension, itching irritability Plan to renew his baclofen at the same daily dose of 15 mg TID Interval Hx : per Devorah and his parents he has been doing very well the balance between side effects of baclofen and the degreee of stiffness of the muscles is achieved with baclofen 15 mg 3 times daily. Devorah's parents have denied any excessive cramps worsening mucle stiffness leading to pain or joints deformities . Devorah is using his communication device to keep his weather forecast station on face book. He enjoys feedback from his friends . Positioning , hygiene transfer are well managed well the current daily dose of baclofen . He is not presenting any daytime drowsiness , tiredness or weakness . Both parents denied any sudden loss of awareness and responsiveness taht may indicate ongoing seizure activity No current outpatient medications on file prior to visit. No current facility-administered medications on file prior to visit. Physical examination BP 110/71 (BP Location: left arm, BP position: sitting, Cuff Size: adult) Pulse 106 Temp 97.9 F (36.6 C) (Temporal) Resp 16 Wt 78 lb (35.4 kg) BMI 15.23 kg/m In his wheelchair, sitting with his trunk vertical head and neck kept straight Pleasant , smart excellent eyes expression ,smiling and expressing his emotions through smiling and facial expression. Drooling present, dyskinetic mouth movements intermittently Hypersensitive startle reflex to noise and unexpected movements around him Slender, lean muscle mass, Cranial nerves : no viual field cuts or neglects, eyes closure opening symetric , symmetric facial movements, midline tongue , EOM full VANESSA Facial sensation Upper extremities resting position :most of the time in shoulder, abduction external rotation, elbows extension, wrist extension Increased knees felxor tone and extensors with flexion contrcatures f the hamstrings , Ankles foot clonus bilaterally Sensory : facaial expression to tactile and cold stimuli applied to the extremities Hyper reflexic DTrs Gait NA Cerebellar : upper extremities movements : poor selective motor control Impression and issues discussed : stable dystonic quadriparetic static encephlopathy. The hypertonicity is relatively well controlled with current daily dose of baclofen 15 mg 3 times daily . Devorah and his parents would like to try going up n baclofen to optimize the effect on loosening further Devorah's muscle stiffness .Devorah's mom Verbalized being aware of the risk of running out of baclofen and the risk of developing baclofen withdrawal syndrome I asked the parents to always have baclofen 20 mg at home . We will go up gradually from 15 mg TID to 20 mg TID. Baclofen to be given daily as instructed .while on baclofen monitor for any excessive daytime drowsiness Baclofen overdose i presents as ;ethargy , shallow breatahing leading to breathing arrest and . DO NOT DISCONTINUE ABRUPTLY IT MAY LEAD TO LIFE THREATENING WITHDRAWAL SYNDROME consisting of itching , irritability, palpitations, sweating, fever, high blood pressure rigidity with difficulty breathing . PLEASE MAKE SURE YOU HAVE BACLOFEN ALWAYS AVAILABLE BY USING MY CHART ASKING FOR REFILL AND /OR CALLING OUR OFFICE during office hours ,our nurse coordinatorMrs Joan Arroyo RN , @ [phone] . After hours call [phone] then enter 0 and ask to talk to the child neurologist retail loss prevention investigator . Baclofen withdrawal is always a concern . In case of attempt to wean we will do it gradually 25% every week RTC in 1 year Or earlier for any concern about seizure activity Gee Acuna MD. Head, Division Child Neurology [address] [place] [address] documented in this encounter [facility] 02-02-2022 Instructions Gee Acuna MD - 02/02/2022 2:50 PM EDT Please go up gradually from Baclofen 15mg 3 times to 20 mg 3 times daily while watching for excessive tiredness, weakness, drowsiness Baclofen to be given daily as instructed .while on baclofen monitor for any excessive daytime drowsiness Baclofen overdose i presents as ;ethargy , shallow breatahing leading to breathing arrest and . DO NOT DISCONTINUE ABRUPTLY IT MAY LEAD TO LIFE THREATENING WITHDRAWAL SYNDROME consisting of itching , irritability, palpitations, sweating, fever, high blood pressure rigidity with difficulty breathing . PLEASE MAKE SURE YOU HAVE BACLOFEN ALWAYS AVAILABLE BY USING MY CHART ASKING FOR REFILL AND /OR CALLING OUR OFFICE during office hours ,our nurse coordinatorMrjennifer Arroyo RN , @ [phone] . After hours call [phone] then enter 0 and ask to talk to the child neurologist retail loss prevention investigator . Gee Acuna MD. Head, [facility] Child Neurology [address] [place] [address] documented in this encounter [facility] Evaluation note Diagnosis CP (cerebral palsy), dyskinetic (HCC)- Primary Infantile cerebral palsy, unspecified Body mass index (BMI) 19.9 or less, adult [facility] (cerebral palsy), dyskinetic (HCC)- Primary Infantile cerebral palsy, unspecified [facility] Diagnosis CP (cerebral palsy), dyskinetic (HCC)- Primary Infantile cerebral palsy, unspecified [facility] Work Phone: Evaluation note* Diagnosis CP (cerebral palsy), spastic, quadriplegic (HCC)- Primary Congenital quadriplegia [facility] Diagnosis CP (cerebral palsy), dyskinetic (HCC)- Primary Infantile cerebral palsy, unspecified Body mass index (BMI) 19.9 or less, adult documented [facility] Summary Purpose Family History No Family History Records FoundNo Family History Records FoundNo Family History Records FoundNo Family History Records FoundNo Family History Records Found Advance Directives No Advanced Directives Records Found Advance Directive Response Recorded Date/ Time Advance Directives Yes May 27, 2017 2:20pm Documents on File Type Date Recorded Patient Medical Device Expl anation Living Will 01/29/2016 2:03 PM Latest Code Status on File Code Status Date Activated Date Inactivated Comments Full Code 06/09/2016 3:55 PM 06/28/2016 12:21 PM Full Code 01/24/2016 2:40 PM 02/11/2016 3:58 PM Full Code 01/14/2016 7:32 AM 01/24/2016 2:40 PM Latest Code Status on File Code Status Date Activated Date Inactivated Comments Full Code 06/09/2016 3:55 PM 06/28/2016 12:21 PM Code Status History Code Status Date Activated Date Inactivated Comments Full Code 01/24/2016 2:40 PM 02/11/2016 3:58 PM Full Code 01/14/2016 7:32 AM 01/24/2016 2:40 PM Documents on File Type Date Recorded Patient Medical Device Expl anation Living Will 01/29/2016 2:03 PM Date Activated Date Inactivated Comments 06/09/2016 3:55 PM 06/28/2016 12:21 PM Date Activated Date Inactivated Comments 01/24/2016 2:40 PM 02/11/2016 3:58 PM Date Activated Date Inactivated Comments 01/14/2016 7:32 AM 01/24/2016 2:40 PM Date Activated Date Inactivated Comments 06/09/2016 3:55 PM 06/28/2016 12:21 PM Date Activated Date Inactivated Comments 01/24/2016 2:40 PM 02/11/2016 3:58 PM Date Activated Date Inactivated Comments 01/14/2016 7:32 AM 01/24/2016 2:40 PM Chief Complaint and Reason for Visit Chief Complaint Open Wound Reason for Visit Pressure ulcer Chief Complaint requested Gilberto mccallchair Assessments Diagnosis Onset Date Resolution Status Pressure ulcer chronic Reason for Referral Specialty Diagnoses / Procedures Referred By Contact Referred To Contact Physical Medicine & Rehab/PM&R Diagnoses CP (cerebral palsy), dyskinetic (HCC) Gee Acuna MD [address] [place] [address] [facility] [address] [address] Referral ID Status Reason Start Date Expiration Date V isits Requested Visits Authorized [id number] Authorized 02/16/2024 02/15/2025 1 1 Scheduling Instructions You have been referred to the Department of Physical Medicine and Rehabilitation. Please call to schedule an appointment . Please arrive 20 minutes prior to your appointment. A personal identification card and insurance card(s) are required at the time of registry. If you have radiology films or other pertinent documents from an outside hospital, please bring them with you. If you are unable to keep your appointment, please call at least 24 hours in advance. Question Answer Patient to be evaluated for: Spasticity Comments Transition of care , dystonic quadriparetic CP needs comprehensive evaluation including but not limited to bone scan , nutrition status Additional Source Comments (unrecognized sect ion and content) No Status Records FoundNo Status Records FoundNo Status Records FoundNo Status Records FoundNo Status Records Found INFORMATION SOURCE (unrecogn ized section and content) DATE CREATED AUTHOR 03/23/2018 [facility] DATE CREATED AUTHOR AUTHOR'S ORGANIZ ATION 07/06/2022 [facility] DATE CREATED AUTHOR AUTHOR'S ORGANIZ ATION 12/24/2022 [facility] DATE CREATED AUTHOR AUTHOR'S ORGANIZ ATION 03/09/2024 [facility] DATE CREATED AUTHOR AUTHOR'S ORGANIZ ATION 05/27/2024 [facility] EPIC Care Teams (unrecognized sec tion and content) Crisis Intervention Specialist Relationship Specialty Start Date End Date Stacy Max MD [address] [place] [id number] PCP - General Family Medicine 04/05/14 Niki Valera MD [address] [place] [address] 36056 Consulting Physician Trauma Surgery 10/19/16 Niki Valera MD [address] [place] [address] [id number] Trauma Surgery 10/19/16 Gee Acuna MD [address] [place] [address] 15225 Physician Pediatric Neurology 07/09/20 Crisis Intervention Specialist Relationship Specialty Start Date End Date Stacy Max MD [address] [place] [address] [id number] PCP - General Family Medicine 04/05/14 Niki Valera MD [address] [place] [address] [phone] Consulting Physician Trauma Surgery 10/19/16 Niki Valera MD [address] [place] [address] [id number] Trauma Surgery 10/19/16 Gee Acuna MD [address] [place] [address] 06092 Physician Pediatric Neurology 07/09/20 Crisis Intervention Specialist Relationship Specialty [place] [address] [place] [address] [id number] PCP - General Family Medicine 04/05/14 Niki Valera MD [address] [place] [address] [phone] Consulting Physician Trauma Surgery 10/19/16 Niki Valera MD [address] [place] [address] [id number] Trauma Surgery 10/19/16 Gee Acuna MD [address] [place] [address] 16181 Physician Pediatric Neurology 07/09/20 Team Status: Inactive Member Role Status Dates Stacy Max MD Primary Care Provider, Attending Pr ovider Active Team Status: Active Member Role Status Stacy Max MD Primary Care Provider Active Crisis Intervention Specialist Relationship Specialty [place] [address] [place] [address] [id number] PCP - General Family Medicine 04/05/14 Niki Valera MD [address] [place] [address] [phone] Consulting Physician Trauma Surgery 10/19/16 Niki Valera MD [address] [place] [address] [id number] Trauma Surgery 10/19/16 Gee Acuna MD [address] [place] [address] 81775 Physician Pediatric Neurology 07/09/20 Crisis Intervention Specialist Relationship Specialty [place] [address] [place] [address] [id number] PCP - General Family Medicine 04/05/14 Niki Valera MD [address] [place] [address] 07561 Consulting Physician Trauma Surgery 10/19/16 Niki Valera MD [address] [place] [address] [id number] Trauma Surgery 10/19/16 Gee Acuna MD [address] [place] [address] [phone] Physician Pediatric Neurology 07/09/20 Crisis Intervention Specialist Relationship Specialty Start Date End Date Stacy Max MD [address] [place] [address] [id number] PCP - General Family Medicine 04/05/14 Niki Valera MD [address] [place] [address] [phone] Consulting Physician Trauma Surgery 10/19/16 Niki Valera MD [address] [place] [address] [id number] Trauma Surgery 10/19/16 Gee Acuna MD [address] [place] [address] 97741 Physician Pediatric Neurology 07/09/20 Crisis Intervention Specialist Relationship Specialty Start Date End Date Stacy Max MD [address] [place] [address] [id number] PCP - General Family Medicine 04/05/14 Niki Valera MD [address] [place] [address] [phone] Consulting Physician Trauma Surgery 10/19/16 Niki Valera MD [address] [place] [address] Trauma Surgery 10/19/16 Gee Acuna MD [address] [place] [address] Physician Pediatric Neurology 07/09/20 Goals (unrecognized section and content) Goals may be documented in a n alternate section Reason for Visit (unrecogniz ed section and content) Reason Onset Date Comments Refill 11/03/2022 Prescription Clarification 11/03/2022 Reason Comments Refill FOR RECORDS PERTAINING TO PATIENTS WHO ARE OR HAVE BEEN ENROLLED IN A CHEMICAL DEPENDENCY/SUBSTANCEABUSE PROGRAM, SOME INFORMATION MAY BE OMITTED. This clinical summary was aggregated from multiple sources. Caution should be exercised in using it in the provision of clinical care. This summary normalizes information from multiple sources, and as a consequence, information in this document may materially change the coding, format and clinical context of patient data. In addition, data may be omitted in some cases. CLINICAL DECISIONS SHOULD BE BASED ON THE PRIMARY CLINICAL RECORDS. [employer] [facility]. provides no warranty or guarantee of the accuracy or completeness of information in this document.
[2024-08-03 10:09] LABS: Basophils Percent Auto 0.6 % (0.2-2.0); Eosinophils Absolute Auto 0.2 10^3/uL (0.0-0.7); Eosinophils Percent Auto 2.8 % (0.9-7.0); Hematocrit 50.9 % (42.0-54.0); Immature Granulocytes Abs Auto 0.01 10^3/uL (0.00-0.03); Immature Granulocytes Pct Auto 0.2 % (0.0-0.5); Lymphocytes Absolute Auto 1.3 10^3/uL (1.2-3.8); Lymphocytes Percent Auto 24.8 % (20.5-60.0); Mean Corpuscular HGB Conc 31.4 g/dL (29.9-35.2); Mean Corpuscular Hemoglobin 28.4 pg (25.9-34.0); Mean Corpuscular Volume 90.2 fL (80.0-94.0); Mean Platelet Volume 10.9 fL (9.5-13.5); Monocytes Absolute Auto 0.3 10^3/uL (0.3-0.8); Monocytes Percent Auto 5.8 % (1.7-12.0); Neutrophils Absolute Auto 3.5 10^3/uL (1.4-6.5); Neutrophils Percent Auto 65.8 % (43.0-75.0); Platelet Count 150 10^3/uL (150-450); Red Blood Count 5.64 10^6/uL (4.70-6.10); Red Cell Distribution Width 13.8 % (11.0-15.0); White Blood Count 5.4 10^3/uL (4.0-11.0)
[2024-08-03 11:42] LABS: Alanine Aminotransferase 20 U/L (16-63); Albumin Globulin Ratio 1.2; Albumin Level 4.6 g/dL (3.4-5.0); Alkaline Phosphatase 76 U/L (46-116); Anion Gap 19.3; Aspartate Amino Transferase 17 U/L (15-37); BUN Creatinine Ratio 17.6; Bilirubin Total 0.9 mg/dL (0.2-1.0); Calcium 10.7 mg/dL (8.5-10.1); Chloride 104 mmol/L (98-107); Chol HDL Ratio 2.9; Cholesterol 158 mg/dL (<=200); Estimated Average Glucose 94 mg/dL; Estimated GFR (African America >60 (>=60 mL/min/1.73m^2); Estimated GFR (Non-African Ame >60 (>=60 mL/min/1.73m^2); Free T3 2.78 pg/mL (2.18-3.98); Globulin 3.8 g/dL; Glucose 105 mg/dL (74-106); Glycohemoglobin A1C 4.9 % (4.5-6.2); HDL Cholesterol 55 mg/dL (40-60); LDL Cholesterol Calculated 92.2 mg/dL; Potassium 5.3 mmol/L (3.5-5.1); Sodium 145 mmol/L (136-145); Thyroid Stimulating Hormone 1.632 uIU/mL (0.358-3.740); Total Protein 8.4 g/dL (6.4-8.2); Triglycerides 54 mg/dL (<=150); VLDL CHOLESTEROL 10.8 mg/dL
[2024-08-04 08:13] LABS: Insulin 2.3 uIU/mL (2.6-24.9)
== END 2024-08-03 09:45 | disposition home or self-care (01) ==
LOC: LAB 09:45
PROVIDERS: PCP Family Medicine; Visit Provider Family Medicine
DX: D50.9 Iron deficiency anemia, unspecified (principal); G80.3 Athetoid cerebral palsy; D53.9 Nutritional anemia, unspecified; E78.5 Hyperlipidemia, unspecified; R73.09 Other abnormal glucose; D64.9 Anemia, unspecified
CPT/HCPCS: 36415; 80053; 80061; 82306; 83036; 83525; 84436; 84443; 84481; 85025

== ENCOUNTER 2024-08-30 09:15 | Outpatient (OUT) | payer MEDICARE, SELFPAY ==
--- OUTSIDE RECORDS SUMMARY | 2024-08-30 09:23 | XMS_ITS | CCD ---
Author Organization [facility] Care Team Providers Care Shopper Name Role Phone Stacy Max~[phone] UNKNOWN Unavailable Unavailable Stacy Max~[phone] UNKNOWN Unavailable Unavailable Stacy Max~[phone] UNKNOWN Unavailable Unavailable Stacy Max Primary Care Provider UnavailNiki Santiago Attending Provider Unavailab Stacy Watts MD Primary Care Provider Niki Valera MD Unavailable Niki Valera MD Unavailable [phone] Gee Acuna MD Unavailable MD Stacy Max Primary Care Provider MD Stacy Max Attending Provider [phone] Stacy Max Attending Unavailable Stacy Max Primary Care Unavailable Stacy Max Admitting Unavailable Stacy Max MD Primary Care Provider [phone] Niki Valera MD Unavailable Niki Valera MD Unavailable [phone] Gee Acuna MD Unavailable Stacy Max MD. Primary Care Provider [phone] Niki Valera MD Unavailable Niki Valera MD Unavailable [phone] Gee Acuna MD Unavailable DR STACY NELSON Attending Unavailable TIMMY ., DR KUMAR Admitting Unavailable TIMMY ., DR KUMAR Primary Care Unavailable TIMMY Romero, DR KUMAR Attending Unavailable HOY ., [...] Attending Unavailable INDIA NAVARRO Attending Unavailable Unavailable Primary Care Provider Unavailsharla e Unavailable Unavailable Unavailable Medications Current Medications Medication Drug Class(es) Dates Sig (Normalized) Sig (Original) baclofen 10 mg oral tablet (14 sources) gamma-Aminobutyri c Acid-ergic Agonist Start: 02-22-2023 [...] Translations: [Pressure ulcer] 07-27-2017 Chronic Developmental disorders (9 sources) Developmental coordination disorder; Translations: [Specific developmental disorder of motor function] Onset: 07-16-2006 07-16-2006 Chronic Disorders of lipid metabolism (1 source) Hyperlipidemia, unspecified; Translations: [HYPERLIPIDEMIA UNSPECIFIED] Onset: 03-25-2022 Chronic Other acquired deformities (8 sources) Scoliosis deformity of spine; Translations: [Other forms of scoliosis, site unspecified] Onset: 05-13-2004 05-13-2004 Chronic Other acquired deformities (1 source) Other kyphoscoliosis and scoliosis Onset: 05-13-2004 07-14-2023 Chronic Other hereditary and degenerative nervous system conditions (4 sources) Dyskinetic cerebral palsy; 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 Other hereditary and degenerative nervous system conditions (8 sources) Hereditary spastic paraplegia; 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] 05-13-2004 Chronic Other hereditary and degenerative nervous system conditions (1 source) Hereditary spastic paraplegia 07-15-2023 Chronic Other nutritional; endocrine; and metabolic disorders (2 sources) Decreased body mass index; Translations: [Body mass index (BMI) 19.9 or less, adult] Episodic Paralysis (17 sources) Cerebral palsy; Translations: [Cerebral palsy, unspecified] [...] Hyperkalemia; Translations: [HYPERKALEMIA] Onset: 03-26-2022 Episodic Other aftercare (1 source) Encounter for occupational therapy Onset: 07-13-2006 07-14-2023 Episodic Other aftercare (1 source) Care involving other physical therapy Onset: 07-16-2006 07-14-2023 Episodic Other connective tissue disease (8 sources) Muscle atrophy; Translations: [Muscle wasting and atrophy, not elsewhere classified, unspecified site] Onset: 07-16-2006 07-16-2006 Episodic Other connective tissue disease (1 source) Muscular wasting and disuse atrophy, not elsewhere classified Onset: 07-16-2006 07-15-2023 Episodic Other gastrointestinal disorders (1 source) Perforation of intestine Onset: 01-14-2016 01-14-2016 Episodic Other nervous system disorders (8 sources) Incoordination; Translations: [Unspecified lack of coordination] Onset: 07-16-2006 07-16-2006 Episodic Other nervous system disorders (1 source) Lack of coordination Onset: 07-16-2006 07-14-2023 Episodic Rehabilitation care; fitting of prostheses; and adjustment of devices (16 sources) Patient encounter status; Translations: [Encounter for occupational therapy] Onset: 07-13-2006 07-13-2006 Episodic Residual codes; unclassified (1 source) Other postprocedural status Onset: 06-09-2016 06-09-2016 Episodic Septicemia (except in labor) (9 sources) Septic shock; Translations: [Sepsis, unspecified organism] Onset: 01-14-2016 Resolved: 06-26-2020 06-26-2020 Episodic Results Test Name Value Interpretation Reference Range Facility Progress Noteson 02-23-2024 Application Development Team Lead Authentication Interface Message Text Dear Dr.Dr. Stacy [...] Component Date Value Ref Range Status [facility] 10/14/2023 ADVANCE DIRECTIVES Final [facility] URL 10/14/2023 [email or web address] Final [facility] ACC 10/14/2023 [id number] Final [facility] ISSUE DATE 10/14/2023 Oct 14, 2023 Final [facility] EXPIRATION DATE 10/14 (more content not included)... [facility] 2023 Application Development Team Lead Authentication Interface Message Text 03/08/24 Called patient again in hopes of scheduling apt with Dr. Holder unable to reach again lv again for a return call to schedule the apt. 02/18/24 Called patient in hopes of scheduling apt with Dr. Holder, unable to reach [facility] for a return call to schedule the apt. Normal [facility] Patient Instructionson 02-15 Application Development Team Lead Authentication Interface Message Text Please make an [...] please call our office :After hours call [phone] then enter 0 and ask to talk to the child neurologist cone machine operator . Gee Acuna MD. Head, Division Child Neurology [address] [place] [address] [address] Normal [facility] Progress Noteson 02-16-2024 Application Development Team Lead Authentication Interface Message Text Identification was verified by patient verbalizing his name and date of . Normal [facility] ([facility] [facility] PROF CHEM 8 (BAS METB)on Anion gap [Moles/Vol] 13.4 mmol/L Normal [facility] Comment on above: Performed By: #### B #### [facility] [address] [place], [place] [address] Dr. Jayesh Sesay Calcium [Mass/Vol] 9.7 mg/dL Normal 8.5-10.1 [facility] Comment on above: Performed By: #### B MP #### [facility] [address] [place] [address] [address] Jayesh Sesay Chloride [Moles/Vol] 104 mmol/L Normal 98-107 [facility] Comment on above: Performed By: #### B MP #### [facility] [address] [place] [address] [address] Jayesh Sesay CO2 [Moles/Vol] 28.6 mmol/L Normal 21.0-32.0 [facility] Comment on above: Performed By: #### B MP #### [facility] [address] [place] [address] [address] Jayesh Sesay Creatinine [Mass/Vol] 0.73 mg/dL Normal 0.70-1.30 [facility] Comment on above: Performed By: #### B MP #### [facility] [address] [place] [address] Dr. Jayesh Sesay EGFR-AF [facility] LUCIAN >60 Normal >=60 [facility] Comment on above: Performed By: #### B MP #### [facility] [address] [place] [address] [address] Jayesh Sesay EGFR-NON AF [facility] LUCIAN >60 Normal >=60 [facility] Comment on above: Performed By: #### B MP #### [facility] [address] [place] [address] Dr. Jayesh Sesay Glucose [Mass/Vol] 90 mg/dL Normal 74-106 [facility] Comment on above: Performed By: #### B MP #### [facility] [address] [place] [address] [address] Jayesh Sesay Potassium [Moles/Vol] 5.0 mmol/L Normal 3.5-5.1 [facility] Comment on above: Performed By: #### B MP #### [facility] [address] [place] [address] [address] Jayesh Sesay Sodium [Moles/Vol] 141 mmol/L Normal 136-145 [facility] Comment on above: Performed By: #### B MP #### [facility] [address] [place] [address] [address] Jayesh Sesay Urea nitrogen [Mass/Vol] 18.0 mg/dL Normal 7.0-18.0 [facility] Comment on above: Performed By: #### B MP #### [facility] [address] [place] [address] Dr. Jayesh Sesay Urea nitrogen/Creatinine [Mass ratio] 24.7 mg/mg Normal [facility] Comment on above: Performed By: #### B MP #### [facility] [address] [place] [address] Dr. Jayesh Sesay INSULINon 03-24-2022 Insulin 4.6 uIU/mL Normal 2.6-24.9 [facility] Comment on above: Performed By: #### I NSULIN #### [facility] [address] [place] [address] Dr. Jayesh Sesay CBC AUTO DIFFon 03-23-2022 BASO # 0.0 103/ul Normal 0.0-0.1 [facility] Comment on above: Performed By: #### C BC #### [facility] [address] [place] [address] Dr. Jayesh Sesay Basophils/100 WBC (Bld) 0.5 % Normal 0.2-2.0 [facility] Comment on above: Performed By: #### C BC #### [facility] [address] [place] [address] Dr. Jayesh Sesay EO # 0.2 103/ul Normal 0.0-0.7 [facility] Comment on above: Performed By: #### C BC #### [facility] [address] [place] [address] Dr. Jayesh Sesay Eosinophils/100 WBC (Bld) 3.1 % Normal 0.9-7.0 [facility] Comment on above: Performed By: #### C BC #### [facility] [address] [place] [address] Dr. Jayesh Sesay Erythrocyte distribution width (RBC) [Ratio] 13.2 % Normal 11.0-15.0 [facility] Comment on above: Performed By: #### C BC #### [facility] [address] [place] [address] Dr. Jayesh Sesay Hematocrit (Bld) [Volume fraction] 49.6 % Normal 42.0-54.0 [facility] Comment on above: Performed By: #### C BC #### [facility] [address] [place] [address] Dr. Jayesh Sesay Hemoglobin (Bld) [Mass/Vol] 15.7 g/dL Normal 14.0-18.0 [facility] Comment on above: Performed By: #### C BC #### [facility] [address] [place] [address] Dr. Jayesh Sesay IG # 0.01 10e3/ul Normal 0.00-0.03 [facility] Comment on above: Performed By: #### C BC #### [facility] [address] [place] [address] Dr. Jayesh Sesay IG % 0.2 % Normal 0.0-0.5 [facility] Comment on above: Performed By: #### C BC #### [facility] [address] [place] [address] Dr. Jayesh Sesay LYMPH # 1.7 103/ul Normal 1.2-3.8 [facility] Comment on above: Performed By: #### C BC #### [facility] [address] [place] [address] Dr. Jayesh Sesay Lymphocytes/100 WBC (Bld) 27.6 % Normal 20.5-60.0 [facility] Comment on above: Performed By: #### C BC #### [facility] [address] [place] [address] Dr. Jayesh Sesay MANUAL DIFF REQ NO Normal [facility] Comment on above: Performed By: #### C BC #### [facility] [address] [place] [address] Dr. Jayesh Sesay MCH (RBC) [Entitic mass] 28.5 pg Normal 25.9-34.0 [facility] Comment on above: Performed By: #### C BC #### [facility] [address] [place] [address] Dr. Jayesh Sesay MCHC (RBC) [Mass/Vol] 31.7 g/dL Normal 29.9-35.2 [facility] Comment on above: Performed By: #### C BC #### [facility] [address] [place] [address] Dr. Jayesh Sesay MCV (RBC) [Entitic vol] 90.2 fL Normal 80.0-94.0 [facility] Comment on above: Performed By: #### C BC #### [facility] [address] [place] [address] [address] Jayesh Sesay MONO # 0.4 103/ul Normal 0.3-0.8 [facility] Comment on above: Performed By: #### C BC #### [facility] [address] [place] [address] Dr. Jayesh Sesay Monocytes/100 WBC (Bld) 6.8 % Normal 1.7-12.0 [facility] Comment on above: Performed By: #### C BC #### [facility] [address] [place] [address] Dr. Jayesh Sesay NEUT # 3.8 103/ul Normal 1.4-6.5 [facility] Comment on above: Performed By: #### C BC #### [facility] [address] [place] [address] Dr. Jayesh Sesay Neutrophils/100 WBC (Bld) 61.8 % Normal 43.0-75.0 [facility] Comment on above: Performed By: #### C BC #### [facility] [address] [place] [address] Dr. Jayesh Sesay Platelet mean volume (Bld) [Entitic vol] 10.9 fL Normal 9.5-13.5 [facility] Comment on above: Performed By: #### C BC #### [facility] [address] [place] [address] Dr. Jayesh Sesay PLT 160 103/ul Normal 150-450 [facility] Comment on above: Performed By: #### C BC #### [facility] [address] [place] [address] Dr. Jayesh Sesay RBC 5.50 106/ul Normal 4.70-6.10 [facility] Comment on above: Performed By: #### C BC #### [facility] [address] [place] [address] Dr. Jayesh Sesay WBC 6.2 103/ul Normal 4.0-11.0 [facility] Comment on above: Performed By: #### C BC #### [facility] [address] [place] [address] Dr. Jayesh Sesay FREE THYROXINE INDEX T7on FTI 4.13 Normal 1.30-4.50 [facility] Comment on above: Performed By: #### L IPID, CMP, TSH, T7 #### [facility] [address] [place] [address] Dr. Jayesh Sesay T3U 35.0 % Normal 33.0-40.0 [facility] Comment on above: Performed By: #### L IPID, CMP, TSH, T7 #### [facility] [address] [place] [address] Dr. Jayesh Sesay T4 [Mass/Vol] 11.80 ug/dL Normal 4.50-12.10 [facility] Comment on above: Performed By: #### L IPID, CMP, TSH, T7 #### [facility] [address] [place] [address] Dr. Jayesh Sesay GLYCOHEMOGLOBIN A1Con 2021 ADA RECOMMENDATION SEE BELOW Normal [facility] Comment on above: Result Comment: ADA RECOMMENDED LIMIT 4.0 - 6.0 ADA THERAPEUTIC TARGET < 7.0 ACTION SUGGESTED > 7.0 Performed By: #### A 1C #### [facility] [address] [place] [address] Dr. Jayesh Sesay Glucose [Mass/Vol] 100 mg/dL Normal [facility] Comment on above: Performed By: #### A 1C #### [facility] [address] [place] [address] Dr. Jayesh Sesay HbA1c (Bld) [Mass fraction] 5.1 % Normal 4.5-6.2 [facility] Comment on above: Performed By: #### A 1C #### [facility] [address] [place] [address] [address] Jayesh Sesay LIPID PROFILEon 03-23-2022 CHOL-HDL RATIO NORM SEE BELOW Normal [facility] Comment on above: Result Comment: 3.3 - 4.4 LOW RISK 4.4 - 7.1 AVERAGE RISK 7.1 - 11.0 MODERATE RISK >11.0 HIGH RISK Performed By: #### L IPID, CMP, TSH, T7 #### [facility] [address] [place] [address] [address] Jayesh Sesay Cholesterol [Mass/Vol] 153 mg/dL Normal <=200 [facility] Comment on above: Performed By: #### L IPID, CMP, TSH, T7 #### [facility] [address] [place] [address] [address] Jayesh Sesay Cholesterol in HDL [Mass/Vol] 49 mg/dL Normal 40-60 [facility] Comment on above: Performed By: #### L IPID, CMP, TSH, T7 #### [facility] [address] [place] [address] [address] Jayesh Sesay Cholesterol in LDL [Mass/Vol] 90.6 mg/dL Normal [facility] Comment on above: Performed By: #### L IPID, CMP, TSH, T7 #### [facility] [address] [place] [address] [address] Jayesh Sesay Cholesterol.total/Ch olesterol in HDL [Mass ratio] 3.1 {ratio} Normal [facility] Comment on above: Performed By: #### L IPID, CMP, TSH, T7 #### [facility] [address] [place] [address] [address] Jayesh Sesay HDL NORMAL > or = 60 mg/dl - LO W CARDIOVASCULAR RISK <40 mg/dl - HIGH CARDIOVASCULAR RISK Normal [facility] Comment on above: Performed By: #### L IPID, CMP, TSH, T7 #### [facility] [address] [place] [address] [address] Jayesh Sesay LDL CALC NORMAL SEE BELOW Normal [facility] Comment on above: Result Comment: <100 mg/dl OPTIMAL 100 - 129 mg/dl NEAR OR ABOVE OPTIMAL 130 - 159 mg/dl BORDERLINE HIGH 160 - 189 mg/dl HIGH >190 mg/dl VERY HIGH Performed By: #### L IPID, CMP, TSH, T7 #### [facility] [address] [place] [address] [address] Jayesh Sesay Triglyceride [Mass/Vol] 67 mg/dL Normal <=150 [facility] Comment on above: Performed By: #### L IPID, CMP, TSH, T7 #### [facility] [address] [place] [address] [address] Jayesh Sesay VLDL CALC 13.4 mg/dL Normal [facility] Comment on above: Performed By: #### L IPID, CMP, TSH, T7 #### [facility] [address] [place] [address] [address] Jayesh Sesay PROF 14(COMP METB)on 022 Albumin [Mass/Vol] 5.0 g/dL Normal 3.4-5.0 [facility] Comment on above: Performed By: #### L IPID, CMP, TSH, T7 #### [facility] [address] [place] [address] [address] Jayesh Sesay Albumin/Globulin [Mass ratio] 1.4 {ratio} Normal [facility] Comment on above: Performed By: #### L IPID, CMP, TSH, T7 #### [facility] [address] [place] [address] [address] Jayesh Sesay ALP [Catalytic activity/Vol] 70 U/L Normal 46-116 [facility] Comment on above: Performed By: #### L IPID, CMP, TSH, T7 #### [facility] [address] [place] [address] [address] Jayesh Sesay ALT [Catalytic activity/Vol] 24 U/L Normal 16-63 [facility] Comment on above: Performed By: #### L IPID, CMP, TSH, T7 #### [facility] [address] [place] [address] [address] Jayesh Sesay Anion gap [Moles/Vol] 22.7 mmol/L Normal [facility] Comment on above: Performed By: #### L IPID, CMP, TSH, T7 #### [facility] [address] [place] [address] Dr. Jayesh Sesay AST [Catalytic activity/Vol] 18 U/L Normal 15-37 [facility] Comment on above: Performed By: #### L IPID, CMP, TSH, T7 #### [facility] [address] [place] [address] Dr. Jayesh Sesay Bilirubin [Mass/Vol] 0.9 mg/dL Normal 0.2-1.0 [facility] Comment on above: Performed By: #### L IPID, CMP, TSH, T7 #### [facility] [address] [place] [address] Dr. Jayesh Sesay Calcium [Mass/Vol] 10.7 mg/dL Critically high 8.5-10.[address] [facility] Comment on above: Performed By: #### L IPID, CMP, TSH, T7 #### [facility] [address] [place] [address] Dr. Jayesh Sesay Chloride [Moles/Vol] 108 mmol/L Critically high 98-107 [facility] Comment on above: Performed By: #### L IPID, CMP, TSH, T7 #### [facility] [address] [place] [address] Dr. Jayesh Sesay CO2 [Moles/Vol] 23.8 mmol/L Normal 21.0-32.0 [facility] Comment on above: Performed By: #### L IPID, CMP, TSH, T7 #### [facility] [address] [place] [address] Dr. Jayesh Sesay Creatinine [Mass/Vol] 0.81 mg/dL Normal 0.70-1.30 [facility] Comment on above: Performed By: #### L IPID, CMP, TSH, T7 #### [facility] [address] [place] [address] Dr. Jayesh Sesay EGFR-AF [facility]CIAN >60 Normal >=60 [facility] Comment on above: Performed By: #### L IPID, CMP, TSH, T7 #### [facility] [address] [place] [address] Dr. Jayesh Sesay EGFR-NON AF [facility] >60 Normal >=60 [facility] Comment on above: Performed By: #### L IPID, CMP, TSH, T7 #### [facility] [address] [place] [address] [address] Jayesh Sesay Globulin (S) [Mass/Vol] 3.7 g/dL Normal [facility] Comment on above: Performed By: #### L IPID, CMP, TSH, T7 #### [facility] [address] [place] [address] [address] Jayesh Sesay Glucose [Mass/Vol] 105 mg/dL Normal 74-106 [facility] Comment on above: Performed By: #### L IPID, CMP, TSH, T7 #### [facility] [address] [place] [address] Dr. Jayesh Sesay Potassium [Moles/Vol] 5.5 mmol/L Critically high 3.5-5.1 [facility] Comment on above: Performed By: #### L IPID, CMP, TSH, T7 #### [facility] [address] [place] [address] [address] Jayesh Sesay Protein [Mass/Vol] 8.7 g/dL Critically high 6.4-8.[address] [facility] Comment on above: Performed By: #### L IPID, CMP, TSH, T7 #### [facility] [address] [place] [address] Dr. Jayesh Sesay Sodium [Moles/Vol] 149 mmol/L Critically high 136-[address] [facility] Comment on above: Performed By: #### L IPID, CMP, TSH, T7 #### [facility] [address] [place] [address] Dr. Jayesh Sesay Urea nitrogen [Mass/Vol] 16.0 mg/dL Normal 7.0-18.0 [facility] Comment on above: Performed By: #### L IPID, CMP, TSH, T7 #### [facility] [address] [place] [address] [address] Jayesh Sesay Urea nitrogen/Creatinine [Mass ratio] 19.8 mg/mg Normal [facility] Comment on above: Performed By: #### L IPID, CMP, TSH, T7 #### [facility] [address] [place], [place] [address] Dr. Jayesh Sesay TSHon 03-23-2022 TSH 1.464 uIU/mL Normal 0.358-3.740 [facility] Comment on above: Performed By: #### L IPID, CMP, TSH, T7 #### [facility] [address] [place] [id number] Jayesh Sesay Coding Summary.on 08-06-2017 Coding Summary. CODING DATE: 08/06/2017 FINAL [facility] STATUS: PAYOR: Medicare ADMIT DX: REASON FOR [...] Juany Hicks Date Saved: 08/06/2017 04:29 pm Normal [facility] Vital Signs Date Time Vital Sign Value Performing Clinician Facility 02-16-2024 12:59-0400 Body mass index (BMI) [Ratio] 15.23 kg/m2 Gee Acuna MD Work Phone: [facility] 02-16-2024 12:59-0400 Body temperature 98.8 [degF] Gee Acuna MD Work Phone: [facility] 02-16-2024 12:59-0400 Body weight 35.38 kg Gee Acuna MD Work Phone: [facility] Comment on above: home weight 02-16-2024 12:59-0400 Diastolic blood pressure 64 mm[Hg] Gee Acuna MD Work Phone: [facility] 02-16-2024 12:59-0400 Heart rate 94 /min Gee Acuna MD Work Phone: [facility] 02-16-2024 12:59-0400 Respiratory rate 18 /min [facility] 02-16-2024 12:59-0400 Systolic blood pressure 91 mm[Hg] [facility] 02-02-2022 14:29-0400 Body mass index (BMI) [Ratio] 15.23 kg/m2 Gee Acuna MD Work [facility] 14:29-0400 Body temperature 97.9 [degF] Gee Acuna MD Work [facility]-02-2022 14:29-0400 Body weight 35.38 kg Gee Acuna MD [facility] 02-02-2022 14:29-0400 Diastolic blood pressure 71 mm[Hg] Gee Acuna MD [facility] 02-02-2022 14:29-0400 Heart rate 106 /min Gee Acuna MD [facility] 02-02-2022 14:29-0400 Respiratory rate 16 /min Gee Acuna MD [facility] 02-02-2022 14:29-0400 Systolic blood pressure 110 mm[Hg] Gee Acuna MD Work Phone: [facility] 09-20-2019 11:18-0500 BMI (Body Mass Index) 14.7 kg/m2 [facility] 09-20-2019 11:18-0500 Body weight 35.38 kg [facility] 09-20-2019 11:18-0500 Height 154.94 cm [facility] 09-20-2019 10:56-0500 Body Temperature 97.4 [degF] [facility] 09-20-2019 10:56-0500 BP Diastolic 70 mm[Hg] [facility] 09-20-2019 10:56-0500 BP Systolic 112 mm[Hg] [facility] 09-20-2019 10:56-0500 Pulse (Heart Rate) 72 /min Stacy Max [facility] 09-20-2019 10:56-0500 Respiratory Rate 18 /min Stacy renzo [facility] Encounters Encounter Date Encounter Type Care Provider Facility Start: 2024 End: 2024 ambulatory INDIA NAVARRO Not Available Start: 02-18-2024 End: 02-18-2024 Telephone encounter Michael Holder MD Work Phone: [facility] [place] [facility] Start: 02-16-2024 End: 02-23-2024 Office outpatient visit 25 minutes Gee Acuna MD Work Phone: [facility] Pediatric Neurology Comment on above: CP (cerebral palsy), dyskinetic (HCC) (Primary Dx); Body mass index (BMI) 19.9 or less, adult Start: 02-16-2024 End: 02-23-2024 ambulatory STACY MAX Facility:[facility] Start: 11-28-2023 Letter encounter [employer] Work Phone: Start: 12-23-[address] STACY MAX . Facili ty:[facility] Start: 11-25-2022 Letter encounter Stacy Cruz Work Phone: [facility] Start: 11-03-2022 Refill Gee Curz Work Phone: [facility] Pediatric Neurology Comment on above: Refill; Prescription Clarification Start: 05-21-2022 End: 05-21-2022 ambulatory Stacy Max Facility:[facility] Start: 05-21-2022 End: 05-21-2022 Discharged Recurring MD Stacy Max Work Phone: [facility] [address] Start: 03-26-2022 End: 03-27-[address] STACY MAX . Facility:[facility] Start: 03-23-2022 End: 03-24-[address] STACY MAX . Facility: Start: 02-25-2022 ambulatory Gee Cruz Work Phone: [facility] Comment on above: Baclofen prescriptio n change Start: 02-25-2022 E-mail encounter fro m caregiver Gee Acuna MD Work Phone: [facility] Start: 02-25-2022 Telephone encounter Iris Arroyo [facility] Pediatric [facility]rology Start: 02-02-2022 End: 02-03-2022 Office outpatient visit 25 minutes Gee Acuna MD Work Phone: [facility] Neurology Comment on above: CP (cerebral palsy), dyskinetic (HCC) (Primary Dx); Body mass index (BMI) 19.9 or less, adult Start: 01-01-[address] STACY MAX . Facili ty:[facility] Start: 09-20-2019 End: 11-06-2019 Discharged Recurring Stacy Max [facility] [place] Start: 08-04-2017 End: 02-10-2018 Ambulatory Stacy~[id number] MARISOL Max Facility:[facility] Start: 06-16-2017 End: 06-17-2017 Discharged Recurring Stacy Max [facility] [place] Procedures Date Procedure Procedure Detail Performing Clinician Start: 06-09-2016 H/O: ileostomy H/O ileostomy Gee kumar MD Work Phone: Plan of Treatment Date Care Activity Detail Author Start: 2037 Shingles (RZV) Vacci ne (1 of 2) Shingles (RZV) Vaccine (1 of 2) [facility] Start: 03-23-2027 Lipid panel [facility] Start: 01-20-2024 Lipid panel [facility] Start: 06-04-2023 COVID-19 Vaccine ( season) COVID-19 Vaccine ( season) [facility] Start: 06-04-2023 Influenza vaccination Influenza Vacc ine (#1) [facility] Start: 07-04-2022 Influenza vaccination Influenza Vacc ine (#1) [facility] Start: 2022 Lipid panel Cholesterol [facility] Start: 10-06-2021 COVID-19 Vaccine (4 - Booster for Moderna series) COVID-19 Vaccine (4 - Booster for Moderna series) [facility] Start: 08-04-2017 Annual wellness visit Annual [facility] ([id number]) [facility] Start: 2014 HPV Vaccine (optiona l start 27-45 years) HPV Vaccine (optional start 27-45 years) [facility] Start: 2006 Hepatitis A (HAV) Vaccine (optional start 19+ years) Hepatitis A (HAV) Vaccine (optional start 19+ years) [facility] Start: 2006 Hepatitis B vaccination Hepati tis B (HBV) Vaccine (1 of 3 - 19+ 3-dose series) [facility] Start: 2005 Hepatitis C screening Hepatitis C An tibody [facility] Start: 2005 Tetanus + diphtheria + acellular pertussis vaccine (product) Tdap Booster [facility] Start: 2002 HIV screening HIV Test [facility] Start: 1987 Hepatitis B vaccination Hepati tis B (HBV) Vaccine (1 of 3 - 3-dose series) [facility] Immunizations Immunization Date Immunization Notes Care Provider Thom conner 08-11-2021 Moderna Monovalent (12+ yrs) COVID-19 vaccine, mRNA, spike protein, LNP, PF, 100 mcg/0.5 mL (UOX=694) [facility] Work Phone: 07-10-2021 influenza, injectabl e, quadrivalent, contains preservative Gee Acuna MD Work Phone: [facility] 07-10-2021 influenza virus vaccine, unspecified formulation Gee Acuna MD Work Phone: [facility] 11-28-2020 Moderna SARS-COV-2 (COVID-19) vaccine, mRNA, spike protein, LNP, preservative free, 100 mcg/0.5 mL (primary) or 50 mcg/0.25 mL (booster) (EBU=042) Gee Acuna MD Work Phone: [facility] 10-31-2020 Moderna SARS-COV-2 (COVID-19) vaccine, mRNA, spike protein, LNP, preservative free, 100 mcg/0.5 mL (primary) or 50 mcg/0.25 mL (booster) (ESQ=722) Gee Acuna MD Work Phone: [facility] 07-09-2020 influenza virus vaccine, unspecified formulation Gee Acuna MD Work Phone: [facility] 08-07-2019 influenza, injectabl e, quadrivalent, contains preservative Gee Acuna MD Work Phone: [facility] 08-19-2018 influenza, injectabl e, quadrivalent, contains preservative Gee Acuna MD Work Phone: [facility] 08-09-2017 influenza, injectabl e, quadrivalent, contains preservative Gee Acuna MD Work Phone: [facility] 07-17-2016 influenza, injectabl e, quadrivalent, preservative free Gee Acuna MD Work Phone: [facility] 01-27-2016 Miroslava Acuna MD Work Phone: [facility] 01-26-2016 Miroslava Acuna MD Work Phone: [facility] 01-25-2016 Miroslava Acuna MD Work Phone: [facility] 01-24-2016 Miroslava Acuna MD Work Phone: [facility] 01-14-2016 Miroslava Acuna MD Work Phone: [facility] 07-24-2015 influenza, injectabl e, quadrivalent, preservative free Gee Acuna MD Work Phone: [facility] 08-13-2014 influenza, injectabl e, quadrivalent, preservative free Gee Acuna MD Work Phone: [facility] 08-04-2013 influenza, seasonal, injectable Gee Acuna MD Work Phone: [facility] Payers Date Payer Category Payer Medicare ANTHEM - MEDICAR E ANTHEM MEDICARE [id number] 2018-Present [address] [place] [address] Medicare HMO [id number] 2017 Private Health Insurance [id number] 1987 Unknown [id number] 1987 Unknown [id number] 1987 Unknown [id number] 1987 Unknown [id number] 1987 Unknown [id number] 1987 Unknown [id number] 1959 Self-pay [id number] 1957 Unknown [id number] Private Health Insurance [id number] Unknown [id number] Unknown [id number] Social History Date Type Detail Facility Start: 09-20-2019 End: 02-22-2023 Tobacco smoking status NHIS Never smoked tobacco (finding) [facility] Start: 1987 Sex Assigned At Male F [facility] Start: 01-02-2021 End: 02-22-2023 Alcohol intake Current non-drinker of alcohol (finding) [facility] Start: 01-02-2021 End: 02-22-2023 Alcohol intake [facility] Start: 1987 Sex Assigned At Not on file [facility] Start: 02-09-2019 End: 02-22-2023 Tobacco use and exposure Smokeless tobacco non-user [facility] Start: 02-22-2023 Tobacco use panel [facility] [employer] Work Phone: Goals Date Patient Goal Desired Activity /State Clinical Notes 02-02-2022 to 02-23-2024 Gee Acuna MD - 02/23/2024 10:17 AM Reny Mills RN - 02/16/2024 12:58 PM EDTTelephone Encounter - Stefanie Gomez - 02/18/2024 3:38 PM [...] 10/14/2023 ADVANCE DIRECTIVES Final MANUELA URL 10/14/2023 [email or web address] Final MANUELA ACC 10/14/2023 [id number] Final MANUELA ISSUE DATE 10/14/2023 Oct 14, 2023 Final MANUELA EXPIRATION DATE 10/14/2023 Nov 28, 2023 Final MANUELA MESSAGE EVENT 10/14/2023 Scheduled Final Impression plan and issues discussed face to face with rn homecare After Reviewing chart,labs, and other clinical notes [...] rehab clinic . Message sent to Dr. Suarez The parents are well aware about benefits [...] /or calling our office after hours call [phone] then enter 0 and ask to talk to the child neurologist cone machine operator . Devorah and his parents verbalized understanding and appreciation of care. Thank you for allowing us to share in Devorah Marcial's management. Sincerely, Gee Acuna MD. Head, Division Child Neurology [address] [place] [address] #3 Identification was verified by patient verbalizing his name and date of . documented in this encounter [facility] 02-18-2024 Telephone encounter Note Form atting of [...] a return call to schedule the apt. [facility] 02-18-2024 Miscellaneous Notes Formattin g of this note might be different from the original. 02/18/24 Called patient in hopes of scheduling apt with Dr. Holder, unable to reach lvm for a return call to schedule the apt. documented in this encounter [facility] 02-18-2024 Miscellaneous Notes Formattin g of this note might be different from the original. 03/08/24 Called patient again in hopes of scheduling apt with Dr. Holder unable to reach again lv again for a return call to schedule the apt. 02/18/24 Called patient in hopes of scheduling apt with Dr. Holder, unable to reach lv for a return call to schedule the apt. documented in this encounter [facility] 02-16-2024 Instructions Gee Acuna MD - 02/16/2024 [...] please call our office :After hours call [phone] then enter 0 and ask to talk to the child neurologist cone machine operator . Gee Acuna MD. Head, Division Child Neurology [address] [place] [address] #3 documented in this encounter [facility] 11-03-2022 Telephone encounter Note Form atting of this note might be different from the original. Reference number [id number]. Spoke with Nemo and Ashwin to have the baclofen 10 mg/tablet : one and half tablet by mouth approved 30 days spupplu ( 135 tablets ) . Per Giovanna the clinical team will provide final decision about authorization within 72 hours By calling, faxing and mailing their decision [facility] 11-03-2022 Miscellaneous Notes Formattin g of this note might be different from the original. Reference number [id number]. Spoke with Nemo and Ashwin to have the baclofen 10 mg/tablet : one and half tablet by mouth approved 30 days spupu ( 135 tablets ) . Per Giovanna the clinical team will provide final decision about authorization within 72 hours By calling, faxing and mailing their decision documented in this encounter [facility] 02-25-2022 Telephone encounter Note Form atting of this note might be different from the original. Based on the parents feedback baclofen 20 mg 3 times daily has caused drowsiness management plan is to give Devorah baclofen 10mg/tablet : one and half tablet ( 15 mg ) 3 times daily with monitoring for excessive drowsiness, tiredness . [facility] 02-25-2022 Miscellaneous Notes Formattin g of this note might be different from the original. Based on the parents feedback baclofen 20 mg 3 times daily has caused drowsiness management plan is to give Devorah baclofen 10mg/tablet : one and half tablet ( 15 mg ) 3 times daily with monitoring for excessive drowsiness, tiredness . documented in this encounter [facility] 02-25-2022 Telephone encounter Note Form atting of this note might be different from the original. ----- Message from Amparo Vo RN sent at 02/25/2022 8:48 AM EDT ----- Regarding: FW: Baclofen prescription change ----- Message ----- From: Devorah Marcial Sent: 02/25/2022 7:10 AM EDT To: Sharla HiltonWeather Anchor Pool Subject: Baclofen prescription change On the [...] script has been requested. Please respond thru [employer] messaging, or home phone [phone] and speak to mom. Thank you [facility] 02-25-2022 Miscellaneous Notes Formattin g of this note might be different from the original. ----- Message from Amparo Vo RN sent at 02/25/2022 8:48 AM EDT ----- Regarding: FW: Baclofen prescription change ----- Message ----- From: Devorah Marcial Sent: 02/25/2022 7:10 AM EDT To: Sharla [facility] Subject: Baclofen prescription change On the [...] script has been requested. Please respond thru [employer] messaging, or home phone [phone] and speak to mom. Thank you documented in this encounter [facility] 02-02-2022 History of Presen t illness Narrative [...] nurse coordinatorMrs Joan Arroyo RN , @ [phone] . After hours call [phone] then enter 0 and ask to talk to the child neurologist cone machine operator . Baclofen withdrawal is always a concern . In case of attempt to wean we will do it gradually 25% every week RTC in 1 year Or earlier for any concern about seizure activity Gee Acuna MD. Head, Division Child Neurology [address] [place] [address] documented in this encounter [facility] 02-02-2022 Instructions Gee Acuna MD - 02/02/2022 [...] nurse coordinatorMrs Joan Arroyo RN , @ [phone] . After hours call [phone] then enter 0 and ask to talk to the child neurologist cone machine operator . Gee Acuna MD. Head, Division Child Neurology [address] [place] [address] documented in this encounter [facility] Evaluation note Diagnosis CP (cerebral palsy), dyskinetic (HCC)- Primary Infantile cerebral palsy, unspecified Body mass index (BMI) 19.9 or less, adult [facility] CP (cerebral palsy), dyskinetic (HCC)- Primary Infantile cerebral palsy, unspecified [facility] Diagnosis CP (cerebral palsy), dyskinetic (HCC)- Primary Infantile cerebral palsy, unspecified [facility] Work Phone: Evaluation note* Diagnosis CP (cerebral palsy), spastic, quadriplegic (HCC)- Primary Congenital quadriplegia [facility] Diagnosis CP (cerebral palsy), dyskinetic (HCC)- Primary Infantile cerebral palsy, unspecified Body mass index (BMI) 19.9 or less, adult [facility] Summary Purpose Family History No Family History Records FoundNo Family History Records FoundNo Family History Records FoundNo Family History Records FoundNo Family History Records Found Advance Directives Advance Directive Response Recorded Date/ Time Advance Directives Yes May 27, 2017 2:20pm Documents on File Type Date Recorded Patient Loss Prevention Specialist Expl anation Living Will 01/29/2016 2:03 PM [...] Documents on File Type Date Recorded Patient Loss Prevention Specialist Expl anation Living Will 01/29/2016 2:03 PM [...] Visit Pressure ulcer Chief Complaint requested Gilberto jimenez Assessments Diagnosis Onset Date Resolution Status Pressure ulcer chronic Reason for Referral Specialty Diagnoses / Procedures Referred By Contact Referred To Contact Physical Medicine & Rehab/PM&R Diagnoses CP (cerebral palsy), dyskinetic (HCC) Gee Acuna MD [address] [place] [address] [facility] [address] [address] Referral ID Status Reason Start Date Expiration Date V isits Requested Visits Authorized [id number] Authorized 02/16/2024 02/15/2025 1 1 Scheduling Instructions [...] section and content) DATE CREATED AUTHOR 03/23/2018 [facility] DATE CREATED AUTHOR AUTHOR'S ORGANIZ ATION 07/06/2022 [facility] DATE CREATED AUTHOR AUTHOR'S ORGANIZ ATION 12/24/2022 [facility] DATE CREATED AUTHOR AUTHOR'S ORGANIZ ATION 03/09/2024 [facility] [employer] [facility] DATE CREATED AUTHOR AUTHOR'S ORGANIZ ATION 05/27/2024 [facility] dical Specialists EPIC Care Teams (unrecognized sec tion and content) Shopper Relationship Specialty Start Date End Date Stacy Max MD [address] [place] [address] PCP - General Family Medicine 04/05/14 Niki Valera MD [address] [place] [address] Consulting Physician Trauma Surgery 10/19/16 Niki Valera MD [address] [place] [address] Trauma Surgery 10/19/16 Gee Acuna MD [address] [place] [address] Physician Pediatric Neurology 07/09/20 Shopper Relationship Specialty Start Date End Date Stacy Max MD [address] [place] [address] PCP - General Family Medicine 04/05/14 Niki Valera MD [address] [place] [address] Consulting Physician Trauma Surgery 10/19/16 Niki Valera MD [address] [place] [id number] Trauma Surgery 10/19/16 Gee Acuna MD [address] [place] [address] Physician Pediatric Neurology 07/09/20 Shopper Relationship Specialty [place] [address] [place] [address] PCP - General Family Medicine 04/05/14 Niki Valera MD [address] [place] [address] Consulting Physician Trauma Surgery 10/19/16 Niki Valera MD [address] [place] [address] Trauma Surgery 10/19/16 Gee Acuna MD [address] [place] [address] Physician Pediatric Neurology 07/09/20 Team Status: Inactive Member Role Status Dates Stacy Max MD Primary Care Provider, Attending Pr ovider Active Team Status: Active Member Role Status Dates Stacy aMx MD Primary Care Provider Active Shopper Relationship Specialty Start Date End Date Stacy Max MD [address] [place] [address] PCP - General Family Medicine 04/05/14 Niki Valera MD [address] [place] [address] Consulting Physician Trauma Surgery 10/19/16 Niki Valera MD [address] [place] [address] Trauma Surgery 10/19/16 Gee Acuna MD [address] [place] [address] Physician Pediatric Neurology 07/09/20 Shopper Relationship Specialty [place] [address] [place] [address] PCP - General Family Medicine 04/05/14 Niki Valera MD [address] [place] [address] Consulting Physician Trauma Surgery 10/19/16 Niki Valera MD [address] [place] [address] Trauma Surgery 10/19/16 Gee Acuna MD [address] [place] [address] Physician Pediatric Neurology 07/09/20 Shopper Relationship Specialty [place] [address] [place] [address] PCP - General Family Medicine 04/05/14 Niki Valera MD [address] [place] [address] Consulting Physician Trauma Surgery 10/19/16 Niki Valera MD [address] [place] [address] Trauma Surgery 10/19/16 Gee Acuna MD [address] [place] [address] Physician Pediatric Neurology 07/09/20 Shopper Relationship Specialty Start Date End Date Stacy Max MD [address] [place] [address] PCP - General Family Medicine 04/05/14 Niki Valera MD [address] [place] [address] Consulting Physician Trauma Surgery 10/19/16 Niki Valera MD [address] [place] [address] Trauma Surgery 10/19/16 Gee Acuna MD [address] [place] [address] Physician Pediatric Neurology 07/09/20 Goals (unrecognized section [...] BE BASED ON THE PRIMARY CLINICAL RECORDS. [facility] [employer] [facility]. provides no warranty or guarantee of the accuracy or completeness of information in this document.
[2024-08-30 10:50] LABS: Alanine Aminotransferase 22 U/L (16-63); Albumin Globulin Ratio 1.3; Albumin Level 4.4 g/dL (3.4-5.0); Alkaline Phosphatase 74 U/L (46-116); Anion Gap 16.8; Aspartate Amino Transferase 19 U/L (15-37); BUN Creatinine Ratio 18.3; Bilirubin Total 1.1 mg/dL (0.2-1.0); Calcium 10.3 mg/dL (8.5-10.1); Carbon Dioxide 27.3 mmol/L (21.0-32.0); Chloride 104 mmol/L (98-107); Estimated GFR (African America >60 (>=60 mL/min/1.73m^2); Estimated GFR (Non-African Ame >60 (>=60 mL/min/1.73m^2); Globulin 3.5 g/dL; Glucose 94 mg/dL (74-106); Potassium 5.1 mmol/L (3.5-5.1); Sodium 143 mmol/L (136-145); Total Protein 7.9 g/dL (6.4-8.2)
== END 2024-08-30 09:16 | disposition home or self-care (01) ==
PROVIDERS: PCP Family Medicine; Visit Provider Nurse Practitioner Family
DX: Z79.899 Other long term (current) drug therapy (principal)
CPT/HCPCS: 36415; 80053